=== PATIENT | female | born 1975 | race Caucasian/White ===

== ENCOUNTER → 2016-10-26 | Outpatient (CLI) | payer MEDICAID | LOC: OD 11:17 | PROVIDERS: ATTEND Internal Medicine | DX: M24.611 Ankylosis, right shoulder (principal) ==

== ENCOUNTER 2016-11-04 18:09 | Emergency (ER) | payer MEDICAID ==
--- NOTE | 2016-11-04 18:19 | ER Document Report ---
ED Medical Screen (RME) - General Chief Complaint: Abscess Stated Complaint: ABSCESS IN ARMPITS Notes: Bilateral axilla abscesses. Patient states she has had MRSA in the past. I greeted and performed a rapid initial assessment of this patient. Comprehensive ED assessment and evaluation of the patient, analysis of test results and completion of the medical decision making process will be conducted by additional ED providers. TRAVEL OUTSIDE OF THE [place] IN LAST 30 DAYS: No - Related Data Allergies/Adverse Reactions: methocarbamol [Methocarbamol] Allergy (Verified 11/15/15 02:20) soy Allergy (Verified 08/10/16 19:37) Past Medical History Pulmonary Medical History: Reports: Hx Pneumonia Denies: Hx Tuberculosis GI Medical History: Reports: Hx Gastritis, Hx Irritable Bowel, Hx Colonoscopy, Hx Endoscopy Musculoskeltal Medical History: Reports Hx Musculoskeletal Trauma Skin Medical History: Reports Hx MRSA Psychiatric Medical History: Reports: Hx Anxiety, Hx Attention Deficit Hyperactivity Disorder, Hx Depression, Hx Post Traumatic Stress Disorder Infectious Medical History: Reports: Hx MRSA Past Surgical History: Reports: Hx Dilation and Curettage - , Hx Oral Surgery - wisdom teeth. Denies: Hx Pacemaker - Immunizations Hx Diphtheria, Pertussis, Tetanus Vaccination: No Physical Exam - Vital signs Vitals: Temp Pulse Resp BP Pulse Ox 97.9 F 70 16 142/85 H 95 11/04/16 18:17 11/04/16 18:17 11/04/16 18:17 11/04/16 18:17 11/04/16 18:17 Course - Vital Signs Vital signs: Temp Pulse Resp BP Pulse Ox 97.9 F 70 16 142/85 H 95 11/04/16 18:17 11/04/16 18:17 11/04/16 18:17 11/04/16 18:17 11/04/16 18:17
[2016-11-04] MEDS ORDERED: LIDOCAINE 1% INJ-PF (10 MG/ML) 30 ML SDV INJ ONE (20:18)
[2016-11-04] MEDS ORDERED: OXYCODONE-ACETAMINOPHEN 5-325 MG TABLET PO ONE (21:37)
[2016-11-04] MEDS ORDERED: CEPHALEXIN 500 MG CAPSULE PO ONE (21:38)
[2016-11-04] MEDS ORDERED: SULFAMETHOXAZOLE/TRIMETHOPRIM 800-160 MG TABLET PO ONE (21:38)
--- NOTE | 2016-11-04 21:40 | ER Document Report ---
ED General - General Chief Complaint: Abscess Stated Complaint: ABSCESS IN ARMPITS Mode of Arrival: Ambulatory Information source: Patient Notes: 41-year-old female presents with complaints of abscess under both armpits that began hurting. Patient has had multiple previous abscesses but notes none in the armpits. Patient denies any fevers or chills nausea vomiting or diarrhea. TRAVEL OUTSIDE OF THE [place] IN LAST 30 DAYS: No - HPI Onset: Other - To 3 days Onset/Duration: Persistent, Worse Quality of pain: Achy Severity: Mild Pain Level: 1 Associated symptoms: Other Exacerbated by: Movement Relieved by: Denies Similar symptoms previously: Yes Recently seen / treated by doctor: No - Related Data Allergies/Adverse Reactions: methocarbamol [Methocarbamol] Allergy (Verified 11/15/15 02:20) soy Allergy (Verified 08/10/16 19:37) Past Medical History - Social History Smoking Status: Current Every Day Smoker Cigarette use (# per day): No Chew tobacco use (# tins/day): No Smoking Education Provided: No Family History: CAD, CVA, DM Patient has suicidal ideation: No Patient has homicidal ideation: No Pulmonary Medical History: Reports: Hx Pneumonia Denies: Hx Tuberculosis Renal/ Medical History: Denies: Hx Peritoneal Dialysis GI Medical History: Reports: Hx Gastritis, Hx Irritable Bowel, Hx Colonoscopy, Hx Endoscopy Musculoskeltal Medical History: Reports Hx Musculoskeletal Trauma Skin Medical History: Reports Hx MRSA Psychiatric Medical History: Reports: Hx Anxiety, Hx Attention Deficit Hyperactivity Disorder, Hx Depression, Hx Post Traumatic Stress Disorder Infectious Medical History: Reports: Hx MRSA Past Surgical History: Reports: Hx Dilation and Curettage - , Hx Oral Surgery - wisdom teeth. Denies: Hx Pacemaker - Immunizations Hx Diphtheria, Pertussis, Tetanus Vaccination: No Review of Systems - Review of Systems Notes: REVIEW OF SYSTEMS: CONSTITUTIONAL : Denies fever, chills, or sweats. Denies recent illness. EENT: Denies eye, ear, throat, or mouth pain or symptoms. Denies nasal or sinus congestion or discharge. Denies throat, tongue, or mouth swelling or difficulty swallowing. CARDIOVASCULAR: Denies chest pain. Denies palpitations or racing or irregular heart beat. Denies ankle edema. RESPIRATORY: Denies cough, cold, or chest congestion. Denies shortness of breath, difficulty breathing, or wheezing. GASTROINTESTINAL: Denies abdominal pain or distention. Denies nausea, vomiting , or diarrhea. Denies blood in vomitus, stools, or per rectum. Denies black, tarry stools. Denies constipation. GENITOURINARY: Denies difficulty urinating, painful urination, burning, frequency, blood in urine, or discharge. FEMALE GENITOURINARY: Denies vaginal bleeding, heavy or abnormal periods, irregular periods. Denies vaginal discharge or odor. MUSCULOSKELETAL: Denies back or neck pain or stiffness. Denies joint pain or swelling. SKIN: Admits to abscesses HEMATOLOGIC : Denies easy bruising or bleeding. LYMPHATIC: Denies swollen, enlarged glands. NEUROLOGICAL: Denies confusion or altered mental status. Denies passing out or loss of consciousness. Denies dizziness or lightheadedness. Denies headache. Denies weakness or paralysis or loss of use of either side. Denies problems with gait or speech. Denies sensory loss, numbness, or tingling. Denies seizures. PSYCHIATRIC: Denies anxiety or stress. Denies depression, suicidal ideation, or homicidal ideation. ALL OTHER SYSTEMS REVIEWED AND NEGATIVE. Dictation was performed using [employer] voice recognition software PHYSICAL EXAMINATION: GENERAL: Well-appearing, well-nourished and in no acute distress. HEAD: Atraumatic, normocephalic. EYES: Pupils equal round extraocular movements intact, conjunctiva are normal. ENT: Nares patent NECK: Normal range of motion LUNGS: No respiratory distress Musculoskeletal: Normal range of motion NEUROLOGICAL: Normal speech, normal gait. PSYCH: Normal mood, normal affect. SKIN: 2 abscesses under the right axilla, 2x2 and 2x3 cm fluctuant 1 abscess under hte left axilla, 1x1 cm not fluctuant Physical Exam - Vital signs Vitals: Temp Pulse Resp BP Pulse Ox 97.9 F 70 16 142/85 H 95 11/04/16 18:17 11/04/16 18:17 11/04/16 18:17 11/04/16 18:17 11/04/16 18:17 Course - Re-evaluation Re-evalutation: 11/04/16 22:19 Areas were anesthetized incised small amount of pus was drained from each site, patient will be given surgical follow-up as well as antibiotics and pain control for home After performing a Medical Screening Examination, I estimate there is LOW risk for OPEN FRACTURE, COMPARTMENT SYNDROME, TENDON RUPTURE, ACUTE NEUROVASCULAR INJURY, or RETAINED FOREIGN BODY, thus I consider the discharge disposition reasonable. Also, there is no evidence or peritonitis, sepsis, or toxicity. The patient and I have discussed the diagnosis and risks, and we agree with discharging home with close follow-up with the understanding that symptoms and presentations can change. We also discussed returning to the Emergency Department immediately if new or worsening symptoms occur. We have discussed the symptoms which are most concerning (e.g., changing or worsening pain, fever , numbness, weakness, cool or painful digits) that necessitate immediate return. 11/04/16 22:21 - Vital Signs Vital signs: Temp Pulse Resp BP Pulse Ox 97.9 F 70 16 142/85 H 95 11/04/16 18:17 11/04/16 18:17 11/04/16 18:17 11/04/16 18:17 11/04/16 18:17 Procedures - Incision and Drainage Left Proximal Arm Time completed: 22:00 - left axilla Type: Simple Anesthetic type: 1% Lidocaine mL's of anesthetic: 4 Blade size: 11 I&D procedure: Shurclens applied, Sterile dressing applied Incision Method: Incision made by scalpel Amount/type of drainage: small amount of pus Right Proximal Arm Time completed: 22:00 - right axilla proximal abscess Type: Complex, Multiple Anesthetic type: 1% Lidocaine mL's of anesthetic: 10 Blade size: 11 Incision Method: Incision made by scalpel Amount/type of drainage: 2 abscesses incisded, small maount of blood and pus Discharge - Discharge Clinical Impression: Axillary abscess Blister of axilla with infection Qualifiers: Encounter type: initial encounter Laterality: unspecified laterality Qualified Code(s): S40.829A - Blister (nonthermal) of unspecified upper arm, initial encounter Condition: Stable Disposition: HOME, SELF-CARE Instructions: Post Incision and Drainage Prescriptions: Cephalexin Monohydrate [Keflex 500 mg Capsule] 500 mg PO QID #40 capsule Oxycodone HCl/Acetaminophen [Percocet 5-325 mg Tablet] 1 - 2 tab PO Q4H PRN #8 tablet PRN Reason: Sulfamethoxazole/Trimethoprim [Bactrim Ds Tablet] 2 each PO BID #40 tablet Referrals: ED HERRERA MD [Primary Care Provider] - Follow up in 3-5 days
[2016-11-04 23:32] VITALS: BP 133/78
== END 2016-11-04 23:10 | disposition home or self-care (01) ==
LOC: ER 18:09
PROC: 0H9BXZZ Drainage of Right Upper Arm Skin, External Approach (ICD-10-PCS; principal; 2016-11-04)
PROC: 0H9CXZZ Drainage of Left Upper Arm Skin, External Approach (ICD-10-PCS; 2016-11-04)
DX: L02.412 Cutaneous abscess of left axilla (principal); L02.411 Cutaneous abscess of right axilla; S40.829A Blister (nonthermal) of unspecified upper arm, initial encounter; F17.200 Nicotine dependence, unspecified, uncomplicated; Z86.14 Personal history of Methicillin resistant Staphylococcus aureus infection
CPT/HCPCS: 99283; 10060; 10061; J3490 ×2

== ENCOUNTER 2018-02-09 10:55 | Emergency (ER) | payer MEDICAID ==
--- NOTE | 2018-02-09 12:05 | ER Document Report ---
ED Medical Screen (RME) - General Chief Complaint: Other Stated Complaint: ABDOMINAL PAIN Time Seen by Provider: 02/09/18 11:55 Notes: 42-year-old female patient diagnosed with left groin strain a few days ago started on Zanaflex on 02/05/2018. She reports at 7:00 this morning she felt dizzy got anxious develop suicidal ideation and hallucinations. She states she cannot stand or walk without taking medication. She stated she tried to self treat massaging her iliopsoas muscle and made the problem worse. She says she has a quadratus lumborum muscle strain, iliopsoas muscle strain, piriformis muscles strain. 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 I have greeted and performed a rapid initial assessment of this patient. A comprehensive ED assessment and evaluation of the patient, analysis of test results and completion of the medical decision making process will be conducted by additional ED providers. TRAVEL OUTSIDE OF THE [place] IN LAST 30 DAYS: No - Related Data Allergies/Adverse Reactions: methocarbamol [Methocarbamol] Allergy (Verified 02/09/18 10:57) propranolol [From Inderal [place]] Allergy (Verified 02/09/18 10:57) soy Allergy (Verified 02/09/18 10:57) Past Medical History - Social History Chew tobacco use (# tins/day): No Frequency of alcohol use: None Drug Abuse: None Pulmonary Medical History: Reports: Hx Pneumonia Denies: Hx Tuberculosis Renal/ Medical History: Denies: Hx Peritoneal Dialysis GI Medical History: Reports: Hx Gastritis, Hx Irritable Bowel, Hx Colonoscopy, Hx Endoscopy Musculoskeltal Medical History: Reports Hx Musculoskeletal Trauma Skin Medical History: Reports Hx MRSA Psychiatric Medical History: Reports: Hx Anxiety, Hx Attention Deficit Hyperactivity Disorder, Hx Depression, Hx Post Traumatic Stress Disorder Infectious Medical History: Reports: Hx MRSA Past Surgical History: Reports: Hx Dilation and Curettage - , Hx Oral Surgery - wisdom teeth. Denies: Hx Pacemaker - Immunizations Hx Diphtheria, Pertussis, Tetanus Vaccination: No Physical Exam - Vital signs Vitals: Temp Pulse Resp BP Pulse Ox 98.5 F 60 16 104/58 L 98 02/09/18 11:00 02/09/18 11:00 02/09/18 11:00 02/09/18 11:00 02/09/18 11:00 Course - Vital Signs Vital signs: Temp Pulse Resp BP Pulse Ox 98.5 F 60 16 104/58 L 98 02/09/18 11:00 02/09/18 11:00 02/09/18 11:00 02/09/18 11:00 02/09/18 11:00
--- NOTE | 2018-02-09 12:45 | ER Document Report ---
HPI - HPI Patient complains to provider of: left hip pain, abdominal pain Pain Level: 3 Context: Patient is a 42-year-old female who presents emergency department 2 complaints. Patient states for the past 2 weeks she has had a focal abdominal discomfort with intermittent bulging. She denies any nausea, vomiting, severe stabbing pain, diarrhea constipation. Patient states she does have a history of IBS but is been consistent with her baseline. She denies any known hernias, history of umbilical or inguinal hernias. She is also complaining of left hip pain. Patient states that she is in school for massage therapy and has noticed pain in her hip and sciatic area. She has been taking Zanaflex which she states helps with the discomfort but otherwise she states she does not like the side effects. Patient follows with Dr. Herrera. - REPRODUCTIVE Reproductive: DENIES: : - DERM Skin Color: Normal, Ute Past Medical History - Social History Smoking Status: Never Smoker Chew tobacco use (# tins/day): No Frequency of alcohol use: None Drug Abuse: None Family History: CAD, CVA, DM Patient has suicidal ideation: No Patient has homicidal ideation: No Pulmonary Medical History: Reports: Hx Pneumonia Denies: Hx Tuberculosis Renal/ Medical History: Denies: Hx Peritoneal Dialysis GI Medical History: Reports: Hx Gastritis, Hx Irritable Bowel, Hx Colonoscopy, Hx Endoscopy Musculoskeltal Medical History: Reports Hx Musculoskeletal Trauma Skin Medical History: Reports Hx MRSA Psychiatric Medical History: Reports: Hx Anxiety, Hx Attention Deficit Hyperactivity Disorder, Hx Depression, Hx Post Traumatic Stress Disorder Infectious Medical History: Reports: Hx MRSA Past Surgical History: Reports: Hx Dilation and Curettage - , Hx Oral Surgery - wisdom teeth. Denies: Hx Pacemaker - Immunizations Hx Diphtheria, Pertussis, Tetanus Vaccination: No Vertical Provider Document - CONSTITUTIONAL Agree With Documented VS: Yes Notes: PHYSICAL EXAM GENERAL: Alert, interacts well. HEAD: Normocephalic, atraumatic. LUNGS: Clear to auscultation bilaterally, no wheezes, rales, or rhonchi. No respiratory distress. HEART: Regular rate and rhythm. No murmurs, gallops, or rubs. ABDOMEN: Soft, nondistended, nontender. Small deficit noted within the umbilicus but no palpable hernia. No concern for an incarcerated hernia at this time. No guarding, rebound, or rigidity.. Bowel sounds present in all 4 quadrants. EXTREMITIES: Moves all 4 extremities spontaneously. Some pain reproducible with range of motion of the left hip. No leg shortening, deformity no edema, radial and dorsalis pedis pulses 2/4 bilaterally. No cyanosis. NEUROLOGICAL: Alert and oriented x4. Normal speech. PSYCH: Normal affect, normal mood. SKIN: Warm, dry, normal turgor. No rashes or lesions noted. - INFECTION CONTROL TRAVEL OUTSIDE OF THE [place] IN LAST 30 DAYS: No Course - Re-evaluation Re-evalutation: 02/09/18 13:33 Patient is a 42-year-old female hemodynamic stable, no acute distress and afebrile. History and exam consistent with possible underlying hernia. No evidence of incarceration at this time. Regarding her hip. No evidence of a septic joint, gout flare, dislocation, or fracture on exam and imaging. Vitals wnl. At this time, I do not see an indication for labs or further imaging. Will discharge with conservative measures, return precautions, and follow-up recommendations. - Vital Signs Vital signs: Temp Pulse Resp BP Pulse Ox 98.5 F 60 16 104/58 L 98 02/09/18 11:00 02/09/18 11:00 02/09/18 11:00 02/09/18 11:00 02/09/18 11:00 - Diagnostic Test Radiology reviewed: Image reviewed, Reports reviewed Discharge - Discharge Clinical Impression: Abdominal pain, Hip pain Condition: Good Disposition: HOME, SELF-CARE Additional Instructions: You do not have evidence of a fracture on today's xrays. Your pain is likely to do soft tissue swelling and inflammation. This can last up to 6 weeks before completely resolving. You should continue to apply ice to the area regularly, keep the affected area elevated, and take ibuprofen 600mg every 6 hours as needed for pain. Please return if you have worsening pain, weakness, numbness, notice increasing redness or swelling to the area, develop a fever, or have any other symptoms that are concerning to you. Your abdominal pain today is consistent with a possible underlying small hernia. Please return with any bump that is present and not able to be reduced/ pushed in with significant pain, nausea vomiting Prescriptions: Cyclobenzaprine HCl [Flexeril 10 mg Tablet] 10 mg PO TIDP PRN #15 tab PRN Reason: Ibuprofen [Motrin 800 mg Tablet] 800 mg PO Q8H PRN #30 tab PRN Reason: Forms: Special Work Note Referrals: ED HERRERA MD [Primary Care Provider] - Follow up in 1 week
--- NOTE | 2018-02-09 13:19 | RADIOLOGY REPORT (SQ) ---
EXAM DESCRIPTION: HIP LEFT AP/LATERAL COMPLETED DATE/TIME: 02/09/2018 1:07 pm REASON FOR STUDY: pain COMPARISON: None. NUMBER OF VIEWS: Two views. TECHNIQUE: AP pelvis and additional frog-leg view of the left hip. LIMITATIONS: None. FINDINGS: MINERALIZATION: Normal. LEFT HIP: No fracture or dislocation. No worrisome bone lesions. RIGHT HIP: No fracture or dislocation. No worrisome bone lesions. PUBIS AND ISCHIUM: No fracture. PELVIS: No fracture. SACRUM: No fracture or dislocation. No worrisome bone lesions. LOWER LUMBAR SPINE: No fracture or dislocation. No worrisome bone lesions. No significant disc disea se. SOFT TISSUES: No findings. OTHER: No other significant finding. IMPRESSION: NEGATIVE STUDY OF THE LEFT HIP AND PELVIS. NO RADIOGRAPHIC EVIDENCE OF ACUTE INJURY. TECHNICAL DOCUMENTATION: JOB ID: [id number] [employer]- All Rights Reserved Reading location - IP/workstation name: [email or web address]
[2018-02-09 14:14] VITALS: BP 119/67
== END 2018-02-09 14:16 | disposition home or self-care (01) ==
LOC: ER 10:55
DX: M25.552 Pain in left hip (principal); R10.9 Unspecified abdominal pain; Z86.14 Personal history of Methicillin resistant Staphylococcus aureus infection
CPT/HCPCS: 99284

== ENCOUNTER 2019-01-19 09:53 | Emergency (ER) | payer MEDICAID ==
[2019-01-19] MEDS ORDERED: MAG HYDROX/AL HYDROX/SIMETH SUSP 30 ML UDCUP PO ONE (10:30)
[2019-01-19 10:48] VITALS: BP 123/81
--- NOTE | 2019-01-19 10:51 | ER Document Report ---
ED General - General Chief Complaint: Accidental Overdose Stated Complaint: ACCIDENTAL OVERDOSE Time Seen by Provider: 01/19/19 10:21 Primary Care Provider: ED HERRERA MD [Primary Care Provider] - Follow up as needed Mode of Arrival: Ambulatory Information source: Patient TRAVEL OUTSIDE OF THE [place] IN LAST 30 DAYS: No - HPI Patient complains to provider of: Accidental drug ingestion Onset: Yesterday Notes: Patient is here with complaints of accidentally taking her medications at home inappropriately. Patient is on Vyvanse. She typically takes it in the morning. Last evening around 9 PM, she accidentally took 2 of her Vyvanse thinking that they were her fluoxetine. When she realized what she had done, she knew she was going to have difficulty sleeping and she took approximately 5-6 5 mg of Valium is at the same time. She did not sleep well through the night. She came to the emergency department this morning because she was concerned that she may have had a problem taking those 2 medications together. The only complaint she has at this time is feeling slightly nauseous, but she denies any vomiting or diarrhea. She denies any homicidal or suicidal ideation. She does complain of anxiety which is chronic. She denies any changes in this at this time. No chest pain or shortness of breath. No blurred or loss vision. No numbness, tingling, weakness. She denies any other complaints at this time. - Related Data Allergies/Adverse Reactions: methocarbamol [Methocarbamol] Allergy (Verified 01/19/19 10:03) propranolol [From Inderal [place]] Allergy (Verified 01/19/19 10:03) soy Allergy (Verified 01/19/19 10:03) Past Medical History - Social History Smoking Status: Never Smoker Frequency of alcohol use: None Drug Abuse: None Family History: CAD, CVA, DM Patient has suicidal ideation: No Patient has homicidal ideation: No Pulmonary Medical History: Reports: Hx Pneumonia Denies: Hx Tuberculosis Renal/ Medical History: Denies: Hx Peritoneal Dialysis GI Medical History: Reports: Hx Gastritis, Hx Irritable Bowel, Hx Colonoscopy, Hx Endoscopy Musculoskeletal Medical History: Reports Hx Musculoskeletal Trauma Skin Medical History: Reports Hx MRSA Psychiatric Medical History: Reports: Hx Anxiety, Hx Attention Deficit Hyperactivity Disorder, Hx Depression, Hx Post Traumatic Stress Disorder Infectious Medical History: Reports: Hx MRSA Past Surgical History: Reports: Hx Dilation and Curettage - , Hx Oral Surgery - wisdom teeth. Denies: Hx Pacemaker - Immunizations Hx Diphtheria, Pertussis, Tetanus Vaccination: No Review of Systems - Review of Systems -: Yes All other systems reviewed and negative Physical Exam - Vital signs Vitals: Temp Pulse Resp BP Pulse Ox 97.9 F 87 16 127/84 H 98 01/19/19 10:00 01/19/19 10:00 01/19/19 10:00 01/19/19 10:00 01/19/19 10:00 - Notes Notes: GENERAL: alert, cooperative, nontoxic, no distress. HEAD: normocephalic, atraumatic EYES: conjunctiva pink without discharge, no external redness or swelling. EARS: no external swelling, no external redness NOSE: atraumatic, no external swelling MOUTH/THROAT: mucous membranes moist and pink, posterior pharynx without erythema, swelling, exudate. No trismus or drooling. NECK: soft, supple, full range of motion, no meningismus. CHEST: no distress, lungs clear and equal throughout. No wheezing, rales, rhonchi. CARDIAC: regular rate and rhythm, no murmur, normal capillary refill, normal pulses. No peripheral edema noted. ABDOMEN: Soft, nontender. BACK: full range of motion, no CVA tenderness. EXTREMITIES: full range of motion of all extremities. No redness, no swelling. NEURO: alert and oriented x 3, no focal deficits, full range of motion of all extremities. PYSCH: appropriate mood, affect. Patient is cooperative. SKIN: pink, warm, dry, no rash. Course - Re-evaluation Re-evalutation: 01/19/19 10:51 Patient is nontoxic-appearing with stable vitals. The patient is here with complaints of actually taking medications last evening. She asked only took 2 of her Vyvanse last night around 9 PM and then took approximately 5-6 and 5 mg Valium in order to counteract the Vyvanse. This was over 12 hours ago. Her only complaint right now is that she feels slightly nauseous. This was not an attempt to harm herself, she denies any suicidal or homicidal ideation. This point the patient looks well. Did not believe any further monitoring is required as the patient took these medications over 12 hours ago and is doing perfectly fine at this time. Her vitals are stable. She is not overly sedated. At this point the patient will be discharged home follow-up with her primary care doctor at the next available appointment. Follow-up sooner if she has any worsening symptoms, homicidal or suicidal ideation, persistent vomiting, severe pain, or any further concerns. The patient's emergency department workup and current diagnosis were explained to the patient and or family. Follow-up instructions were provided. Medications if prescribed were discussed. Instructions for when to return to the emergency department including specific worrisome symptoms were discussed with the patient and/or family. - Vital Signs Vital signs: Temp Pulse Resp BP Pulse Ox 97.9 F 87 16 127/84 H 98 01/19/19 10:00 01/19/19 10:00 01/19/19 10:00 01/19/19 10:00 01/19/19 10:00 Discharge - Discharge Clinical Impression: Accidental drug ingestion Qualifiers: Encounter type: initial encounter Qualified Code(s): T50.901A - Poisoning by unspecified drugs, medicaments and biological substances, accidental (unintentional), initial encounter Condition: Stable Disposition: HOME, SELF-CARE Instructions: Anxiety (OM) Additional Instructions: Be careful when taking medications that you are taking the correct medications at the correct time. Follow-up with your doctor to discuss treating her anxiety in a more efficient manner. Follow-up sooner for any worsening symptoms, high fever, persistent vomiting, homicidal or suicidal ideation, or for any further concerns. Referrals: ED HERRERA MD [Primary Care Provider] - Follow up as needed
== END 2019-01-19 10:55 | disposition home or self-care (01) ==
LOC: ER 09:53
DX: T43.621A Poisoning by amphetamines, accidental (unintentional), initial encounter (principal); R11.0 Nausea; Z79.899 Other long term (current) drug therapy
CPT/HCPCS: 99283; J3490

== ENCOUNTER 2019-02-23 22:38 | Emergency (ER) | payer MEDICAID ==
--- NOTE | 2019-02-24 01:14 | ER Document Report ---
ED Medical Screen (RME) - General Chief Complaint: Abscess Stated Complaint: ABSCESS Time Seen by Provider: 02/24/19 01:12 Primary Care Provider: ED HERRERA MD [Primary Care Provider] - Follow up as needed Mode of Arrival: Ambulatory Information source: Patient Notes: 43-year-old female presented to ED for pain swelling and redness to the left chin. 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 She states she plucked a hair from her chin a couple days ago and it is slowly become more painful and swelling. She states this morning it has greatly increased in size all day. She states she is been using hot compresses to this. She states she has a history of frequent MRSA. She has a history of PTSD autism ADHD major depression and generalized anxiety disorder. She states she has Valium at home for her mental health issues and she took milligrams at noon due to the discomfort. She states she is also been taken Tylenol throughout the day. I have greeted and performed a rapid initial assessment of this patient. A comprehensive ED assessment and evaluation of the patient, analysis of test results and completion of medical decision making process will be conducted by an additional ED providers. Dictation of this chart was performed using voice recognition software; therefore, there may be some unintended grammatical errors. TRAVEL OUTSIDE OF THE [place] IN LAST 30 DAYS: No - Related Data Allergies/Adverse Reactions: methocarbamol [Methocarbamol] Allergy (Verified 01/19/19 10:03) propranolol [From Inderal [place]] Allergy (Verified 01/19/19 10:03) soy Allergy (Verified 01/19/19 10:03) Past Medical History Pulmonary Medical History: Reports: Hx Pneumonia Denies: Hx Tuberculosis Renal/ Medical History: Denies: Hx Peritoneal Dialysis GI Medical History: Reports: Hx Gastritis, Hx Irritable Bowel, Hx Colonoscopy, Hx Endoscopy Musculoskeltal Medical History: Reports Hx Musculoskeletal Trauma Skin Medical History: Reports Hx MRSA Psychiatric Medical History: Reports: Hx Anxiety, Hx Attention Deficit Hyperactivity Disorder, Hx Depression, Hx Post Traumatic Stress Disorder Infectious Medical History: Reports: Hx MRSA Past Surgical History: Reports: Hx Dilation and Curettage - , Hx Oral Surgery - wisdom teeth. Denies: Hx Pacemaker - Immunizations Hx Diphtheria, Pertussis, Tetanus Vaccination: No Physical Exam - Vital signs Vitals: Temp Pulse Resp BP Pulse Ox 98.3 F 94 16 122/84 98 02/23/19 23:57 02/23/19 23:57 02/23/19 23:57 02/23/19 23:57 02/23/19 23:57 Course - Vital Signs Vital signs: Temp Pulse Resp BP Pulse Ox 98.3 F 94 16 122/84 98 02/23/19 23:57 02/23/19 23:57 02/23/19 23:57 02/23/19 23:57 02/23/19 23:57 Doctor's Discharge - Discharge Referrals: ED HERRERA MD [Primary Care Provider] - Follow up as needed
[2019-02-24] MEDS ORDERED: LIDOCAINE 1% INJ-PF (10 MG/ML) 30 ML SDV INJ ONE (05:11)
[2019-02-24] MEDS ORDERED: PROMETHAZINE HCL 25 MG TABLET PO ONE (05:11)
[2019-02-24] MEDS ORDERED: OXYCODONE-ACETAMINOPHEN 5-325 MG TABLET PO ONE (05:11)
[2019-02-24] MEDS ORDERED: CEFTRIAXONE INJ 1000 MG VIAL IM ONE (05:11)
[2019-02-24] MEDS ORDERED: SULFAMETHOXAZOLE/TRIMETHOPRIM 800-160 MG TABLET PO ONE (05:11)
[2019-02-24 05:39] VITALS: BP 131/84
--- NOTE | 2019-02-24 05:44 | ER Document Report ---
ED Skin Rash/Insect Bite/Abscs - General Chief Complaint: Abscess Stated Complaint: ABSCESS Time Seen by Provider: 02/24/19 01:12 Primary Care Provider: ED HERRERA MD [Primary Care Provider] - Follow up as needed Mode of Arrival: Ambulatory Notes: Patient is a 43-year-old female that comes to the emergency department for chief complaint of pain, redness, swelling to her chin/jaw, mainly on the left side. Patient states she had a hair that she picked out, she states yesterday morning she started noticing some tenderness and redness, she states this worsened significantly. She reports a history of MRSA infection previously. She does not have diabetes. She denies any complaints otherwise including fever/chills, nausea/vomiting. TRAVEL OUTSIDE OF THE [place] IN LAST 30 DAYS: No - Related Data Allergies/Adverse Reactions: methocarbamol [Methocarbamol] Allergy (Verified 01/19/19 10:03) propranolol [From Inderal [place]] Allergy (Verified 01/19/19 10:03) soy Allergy (Verified 01/19/19 10:03) Past Medical History - General Information source: Patient - Social History Smoking Status: Never Smoker Drug Abuse: None Lives with: Family Family History: CAD, CVA, DM Patient has suicidal ideation: No Patient has homicidal ideation: No Pulmonary Medical History: Reports: Hx Pneumonia Denies: Hx Tuberculosis Renal/ Medical History: Denies: Hx Peritoneal Dialysis GI Medical History: Reports: Hx Gastritis, Hx Irritable Bowel, Hx Colonoscopy, Hx Endoscopy Musculoskeletal Medical History: Reports Hx Musculoskeletal Trauma Skin Medical History: Reports Hx MRSA Psychiatric Medical History: Reports: Hx Anxiety, Hx Attention Deficit Hyperactivity Disorder, Hx Depression, Hx Post Traumatic Stress Disorder Infectious Medical History: Reports: Hx MRSA Past Surgical History: Reports: Hx Dilation and Curettage - , Hx Oral Surgery - wisdom teeth. Denies: Hx Pacemaker - Immunizations Hx Diphtheria, Pertussis, Tetanus Vaccination: No Review of Systems - Review of Systems Constitutional: No symptoms reported EENT: No symptoms reported Cardiovascular: No symptoms reported Respiratory: No symptoms reported Gastrointestinal: No symptoms reported Genitourinary: No symptoms reported Female Genitourinary: No symptoms reported Musculoskeletal: No symptoms reported Skin: See HPI Hematologic/Lymphatic: No symptoms reported Neurological/Psychological: No symptoms reported Physical Exam - Vital signs Vitals: Temp Pulse Resp BP Pulse Ox 98.3 F 94 16 122/84 98 02/23/19 23:57 02/23/19 23:57 02/23/19 23:57 02/23/19 23:57 02/23/19 23:57 - Notes Notes: GENERAL: Alert, interacts well. No acute distress. HEAD: Normocephalic, atraumatic. EYES: Pupils equal, round, and reactive to light. Extraocular movements intact. ENT: Oral mucosa moist, tongue midline. Oropharynx unremarkable. Airway patent. Nares patent, no nasal septal hematoma, TM's intact. NECK: Full range of motion. Supple. Trachea midline. LUNGS: Clear to auscultation bilaterally, no wheezes, rales, or rhonchi. No respiratory distress. HEART: Regular rate and rhythm. No murmur ABDOMEN: Soft, non-tender. Non-distended. Bowel sounds present in all 4 quadrants. GENITOURINARY: Deferred EXTREMITIES: Moves all 4 extremities spontaneously. No edema, normal radial and dorsalis pedis pulses bilaterally. No cyanosis. BACK: no cervical, thoracic, lumbar midline tenderness. No saddle anesthesia, normal distal neurovascular exam. NEUROLOGICAL: Alert and oriented x3. Normal speech. . PSYCH: Normal affect, normal mood. SKIN: Warm, dry, normal turgor. Left chin area with erythema, mild soft tissue swelling, however no induration or fluctuance is noted. There is a tiny area of picked skin with a scab over it. Course - Re-evaluation Re-evalutation: Examination is most consistent with a cellulitis. Patient is afebrile, not diabetic. A quick bedside ultrasound performed and does not show any pocket of fluid suggesting abscess at this time. As result patient will be treated with antibiotics, recommended quick follow-up and strict return precautions if she worsens in any way. Patient declined the area being traced with a medical pen but reported she did take pictures of herself to compare. Stable at time of discharge. - Vital Signs Vital signs: Temp Pulse Resp BP Pulse Ox 97.8 F 67 18 131/84 H 100 02/24/19 05:38 02/24/19 05:38 02/24/19 05:38 02/24/19 05:38 02/24/19 05:38 Discharge - Discharge Clinical Impression: Cellulitis Qualifiers: Site of cellulitis: face Qualified Code(s): L03.211 - Cellulitis of face Condition: Stable Disposition: HOME, SELF-CARE Additional Instructions: There is no noted drainable abscess at this time. Your exam is consistent with facial cellulitis. Take the antibiotics as prescribed, take the pain medication if needed, especially to help you rest. Follow-up very closely with your primary care provider within the next 48 hours. Return if you worsen in any way including spreading redness, developing fever, or any other concerning or worsening symptoms. Prescriptions: Cephalexin Monohydrate [Keflex 500 mg Capsule] 500 mg PO QID #28 capsule Hydrocodone/Acetaminophen [[place] 5-325 mg Tablet] 1 - 2 tab PO ASDIR #12 tablet Sulfamethoxazole/Trimethoprim [Bactrim Ds Tablet] 1 each PO BID #14 tablet Referrals: ED HERRERA MD [Primary Care Provider] - Follow up as needed
== END 2019-02-24 05:48 | disposition home or self-care (01) ==
LOC: ER 22:38
DX: L03.211 Cellulitis of face (principal); R22.0 Localized swelling, mass and lump, head
CPT/HCPCS: 99282; 96372; J3490 ×3; J0696

== ENCOUNTER 2019-02-25 10:06 | Inpatient (IN) | payer MEDICAID ==
[2019-02-25] MEDS ORDERED: NORMAL SALINE 1000 ML 1,000 ML IV ONE (11:00)
[2019-02-25] MEDS ORDERED: CLINDAMYCIN 600 MG/D5W RTU 600 MG/50 ML RTUPB IV ONE (11:02)
[2019-02-25] MEDS ORDERED: KETOROLAC TROMETHAMINE INJ/PF 30 MG/1 ML SDV IV ONE (11:02)
--- NOTE | 2019-02-25 11:05 | ER Document Report ---
ED Medical Screen (RME) - General Chief Complaint: Facial Swelling Stated Complaint: FEVER/NECK REDNESS AND SWOLLEN Time Seen by Provider: 02/25/19 10:54 Primary Care Provider: ED HERRERA MD [Primary Care Provider] - Follow up as needed Mode of Arrival: Ambulatory Information source: Patient TRAVEL OUTSIDE OF THE [place] IN LAST 30 DAYS: No - HPI Patient complains to provider of: LEFT CHIN ABSCESS Notes: 02/25/19 11:03 Patient here with complaints of worsening left chin abscess. The patient states started about 4 days ago. She was seen here 2 days ago and was noted to have no drainable abscess at that time. She was given a dose of IV antibiotics and was given Keflex and Bactrim to take home. She states when she woke up this morning the swelling was significantly worse, the redness was worse and she had a temperature of 99.9 she states that it does hurt somewhat to swallow as well. Exam Nontoxic, no distress. Lungs clear and equal throughout. Tachycardia. Abscess with swelling, induration and tenderness to the left aspect of the chin with cellulitis to the chin and down the left aspect of the neck. Swelling noted to the left aspect of the lower lip. Airway patent. Plan Due to the fact that the patient has an infection and is tachycardic I have gone ahead and initiated the sepsis protocol. She is afebrile currently. Also ordered a CT of the soft tissues and neck to evaluate for deep space infection. Clindamycin has been ordered IV. An initial examination was made on the patient as part of the triage process, and it was determined a more comprehensive evaluation was necessary. Initial labs were ordered and patient was transferred to another provider in the ED who assumed care and finished evaluation and plan. - Related Data Allergies/Adverse Reactions: methocarbamol [Methocarbamol] Allergy (Verified 02/25/19 10:09) propranolol [From Inderal [place]] Allergy (Verified 02/25/19 10:09) soy Allergy (Verified 02/25/19 10:09) Past Medical History Pulmonary Medical History: Reports: Hx Pneumonia Denies: Hx Tuberculosis Renal/ Medical History: Denies: Hx Peritoneal Dialysis GI Medical History: Reports: Hx Gastritis, Hx Irritable Bowel, Hx Colonoscopy, Hx Endoscopy Musculoskeltal Medical History: Reports Hx Musculoskeletal Trauma Skin Medical History: Reports Hx MRSA Psychiatric Medical History: Reports: Hx Anxiety, Hx Attention Deficit Hyperactivity Disorder, Hx Depression, Hx Post Traumatic Stress Disorder Infectious Medical History: Reports: Hx MRSA Past Surgical History: Reports: Hx Dilation and Curettage - , Hx Oral Surgery - wisdom teeth. Denies: Hx Pacemaker - Immunizations Hx Diphtheria, Pertussis, Tetanus Vaccination: No Physical Exam - Vital signs Vitals: Temp Pulse Resp BP Pulse Ox 99.1 F 134 H 18 139/86 H 94 02/25/19 10:16 02/25/19 10:16 02/25/19 10:16 02/25/19 10:16 02/25/19 10:16 Course - Vital Signs Vital signs: Temp Pulse Resp BP Pulse Ox 99.1 F 134 H 18 139/86 H 94 02/25/19 10:16 02/25/19 10:16 02/25/19 10:16 02/25/19 10:16 02/25/19 10:16 Doctor's Discharge - Discharge Referrals: ED HERRERA MD [Primary Care Provider] - Follow up as needed
[2019-02-25 12:06] LABS: VENOUS BLOOD BASE EXCESS 0.1 mmol/L; VENOUS BLOOD HCO3 26.4 mmol/L (20-32); VENOUS BLOOD PCO2 49.1 mmHg (35-63); VENOUS BLOOD PH 7.35 (7.30-7.42)
[2019-02-25 12:07] LABS: ABSOLUTE BASOPHILS # (AUTO) 0.1 10^3/uL (0.0-0.2); ABSOLUTE EOSINOPHILS # (AUTO) 0.1 10^3/uL (0.0-0.6); ABSOLUTE LYMPHOCYTES (AUTO) 2.3 10^3/uL (0.5-4.7); ABSOLUTE MONOCYTES (AUTO) 1.2 10^3/uL (0.1-1.4); ABSOLUTE NEUT (AUTO) 9.7 10^3/uL (1.7-8.2); BASOPHILS % (AUTO) 0.4 % (0-2); EOSINOPHILS % (AUTO) 0.5 % (0-6); HEMATOCRIT 41.6 % (36.0-47.0); HEMOGLOBIN 14.3 g/dL (12.0-15.5); LYMPHOCYTES % (AUTO) 17.6 % (13-45); MEAN CORPUSCULAR HEMOGLOBIN 31.6 pg (27.0-33.4); MEAN CORPUSCULAR HGB CONC 34.5 g/dL (32.0-36.0); MEAN CORPUSCULAR VOLUME 92 fl (80-97); MONOCYTES % (AUTO) 8.7 % (3-13); PLATELET COUNT 301 10^3/uL (150-450); RED BLOOD COUNT 4.53 10^6/uL (3.72-5.28); RED CELL DISTRIBUTION WIDTH 12.4 % (11.5-14.0); SEGMENTED NEUTROPHILS % (AUTO) 72.8 % (42-78); TOTAL CELLS COUNTED % (AUTO) 100 %; WHITE BLOOD COUNT 13.4 10^3/uL (4.0-10.5)
[2019-02-25 12:15] LABS: APPEARANCE,URINE CLEAR; BILIRUBIN,URINE NEGATIVE (NEGATIVE); COLOR,URINE YELLOW; GLUCOSE, URINE NEGATIVE (NEGATIVE); KETONES,URINE NEGATIVE (NEGATIVE); NITRITE,URINE NEGATIVE (NEGATIVE); PROTEIN,URINE NEGATIVE (NEGATIVE); URINE SPECIFIC GRAVITY 1.013
[2019-02-25 12:16] LABS: ADD MANUAL MICROSCOPIC YES; INTERNATIONAL RATION (INR) 1.04; LEUKOCYTE ESTERASE,URINE TRACE (NEGATIVE); PROTHROMBIN TIME 14.1 SEC (11.4-15.4)
[2019-02-25 12:19] LABS: BACTERIA,URINE 2+ /HPF
[2019-02-25 12:31] LABS: ALANINE AMINOTRANSFERASE 20 U/L (9-52); ALBUMIN 4.3 g/dL (3.5-5.0); ALKALINE PHOSPHATASE 90 U/L (38-126); ANION GAP 14 (5-19); ASPARTATE AMINO TRANSFERASE 19 U/L (14-36); BILIRUBIN,DIRECT 0.3 mg/dL (0.0-0.4); BILIRUBIN,TOTAL 0.7 mg/dL (0.2-1.3); BLOOD UREA NITROGEN 10 mg/dL (7-20); CALCIUM 9.9 mg/dL (8.4-10.2); CARBON DIOXIDE 28 mmol/L (22-30); CHLORIDE 99 mmol/L (98-107); GLUCOSE 101 mg/dL (75-110); POTASSIUM 4.3 mmol/L (3.6-5.0); SODIUM 141.2 mmol/L (137-145); TOTAL PROTEIN 7.6 g/dL (6.3-8.2)
--- NOTE | 2019-02-25 12:57 | RADIOLOGY REPORT (SQ) ---
EXAM DESCRIPTION: CT SOFT TISSUE NECK WITH COMPLETED DATE/TIME: 02/25/2019 12:35 pm REASON FOR STUDY: LEFT CHIN ABSCESS COMPARISON: None. TECHNIQUE: Post IV contrasted scanning from skull base through lung apices with review of bone, soft tissue and lung windows. Reconstructed coronal and sagittal MPR images reviewed. All images stored on PACS. All CT scanners at this facility use dose modulation, iterative reconstruction, and/or weight based d osing when appropriate to reduce radiation dose to as low as reasonably achievable (ALARA). [facility]: Dose Right [facility]: CareDose [facility]: Dose Right [facility]: Teradose 4D [facility]: Echobit CONTRAST TYPE AND DOSE: contrast/concentration: Isovue 350.00 mg/ml; Total Contrast Delivered: 75.0 ml; Total Saline Delivered: 54.0 ml RENAL FUNCTION: None required. The patient is less than 50 years old. RADIATION DOSE: CT Rad equipment meets quality standard of care and radiation dose reduction techniq ues were employed. CTDIvol: 14.8 mGy. DLP: 435 mGy-cm. . LIMITATIONS: None. FINDINGS: SKULL BASE: Intact. MAJOR SALIVARY GLANDS: No solid or cystic masses. No inflammatory changes. LYMPHADENOPATHY: There are scattered small cervical nodes most likely reactive. MUCOSAL MASSES OR ASYMMETRY: No mucosal masses or asymmetry. LARYNX/CORDS: No abnormal findings. VASCULAR STRUCTURES: The major vessels are patent. LUNG APICES: Clear. BONES: Intact. THYROID: Normal size. No masses. PARANASAL SINUSES: Clear. OTHER: There is asymmetric soft tissue along the left aspect of the mandible. There is surrounding s ubcutaneous inflammation. This most likely represents infectious or inflammatory process. Hounsfiel d units measure over 68. There is no drainable abscess at this time. Soft tissue neoplasm cannot be excluded but with the surrounding inflammation is thought to be less likely. IMPRESSION: Subcutaneous inflammation with asymmetric soft tissue along the left aspect of the ayush ble. Hounsfield units measure 68. Overall size is 3.9 cm. This may represent developing abscess. There is no drainable collection at this time. Soft tissue neoplasm is thought to be less likely but not excluded. TECHNICAL DOCUMENTATION: JOB ID: [id number] Quality ID # [id number]: Final reports with documentation of one or more dose reduction techniques (e.g., Au tomated exposure control, adjustment of the mA and/or kV according to patient size, use of iterative reconstruction technique) 2010 [email or web address]- All Rights Reserved Reading location - IP/workstation name: [email or web address]
--- NOTE | 2019-02-25 14:43 | ER Document Report ---
ED General - General Chief Complaint: Facial Swelling Stated Complaint: FEVER/NECK REDNESS AND SWOLLEN Time Seen by Provider: 02/25/19 10:54 Primary Care Provider: ED HERRERA MD [Primary Care Provider] - Follow up as needed Mode of Arrival: Ambulatory TRAVEL OUTSIDE OF THE [place] IN LAST 30 DAYS: No - HPI Notes: Patient is a 43-year-old female that presents to the emergency department for chief complaint of facial swelling. Patient states on 02/23/2019 she started to have some swelling on the left lower side of her chin. She was seen the following day and started on Bactrim and Keflex. She has been taking her antibiotics as prescribed and states the swelling has been getting worse. Last night she did report some green purulent drainage from one area on the inferior aspect of her chin. She denies any fevers or chills. She denies any sensation of lingual edema or swelling underneath of her tongue. She denies diabetes. She states she noticed some redness on her neck today which is why she came back to the emergency room. Past Medical History: PTSD, autism, depression, anxiety, ADHD Past Surgical History: Negative Social History: Denies drugs alcohol and tobacco Family History: Reviewed and noncontributory for presenting illness Allergies: Reviewed, see documented allergy list. REVIEW OF SYSTEMS: CONSTITUTIONAL : No fever No chills No diaphoresis No recent illness EENT: No vision changes No congestion No sore throat Facial swelling CARDIOVASCULAR: No chest pain No palpitations RESPIRATORY: No shortness of breath No cough No difficulty breathing GASTROINTESTINAL: No abdominal pain No nausea No vomiting No diarrhea GENITOURINARY: No dysuria No hematuria No difficulty urinating MUSCULOSKELETAL: No back pain No leg pain No arm pain SKIN: rashes Facial redness LYMPHATIC: No swollen, enlarged glands. NEUROLOGICAL: No lightheadedness No headache No weakness No paresthesias PSYCHIATRIC: No anxiety No depression PHYSICAL EXAMINATION: Vital signs reviewed, nursing noted reviewed. GENERAL: Well-appearing, well-nourished and in no acute distress. HEAD: Atraumatic, normocephalic. EYES: Eyes appear normal, extraocular movements intact, sclera anicteric, conju nctiva are normal. ENT: Swelling over patient's chin and left mandibular region with erythema that extends down into the upper neck, no sublingual edema, normal oropharynx, no dental abscess, nares patent, oropharynx clear without exudates. Moist mucous membranes. NECK: No crepitus, left-sided erythema, normal range of motion, supple without lymphadenopathy LUNGS: Breath sounds clear to auscultation bilaterally and equal. No wheezes rales or rhonchi. HEART: Regular rate and rhythm without murmurs ABDOMEN: Soft, nontender, normoactive bowel sounds. No rebound, guarding, or rigidity. No masses appreciated. EXTREMITIES: Nontender, good range of motion, no pitting or edema. NEUROLOGICAL: No focal neurological deficits. Moves all extremities spontaneously Motor and sensory grossly intact on exam. PSYCH: Normal mood, normal affect. SKIN: Warm, Dry, normal turgor, erythema, induration and edema to chin, left mandible and left anterior neck with excoriated area over chin, no active drainage. - Related Data Allergies/Adverse Reactions: methocarbamol [Methocarbamol] Allergy (Verified 02/25/19 10:09) propranolol [From Inderal [place]] Allergy (Verified 02/25/19 10:09) soy Allergy (Verified 02/25/19 10:09) Past Medical History - General Information source: Patient - Social History Smoking Status: Never Smoker Chew tobacco use (# tins/day): No Frequency of alcohol use: Rare Drug Abuse: None Family History: CAD, CVA, DM Patient has suicidal ideation: No Patient has homicidal ideation: No Pulmonary Medical History: Reports: Hx Pneumonia Denies: Hx Tuberculosis Renal/ Medical History: Denies: Hx Peritoneal Dialysis GI Medical History: Reports: Hx Gastritis, Hx Irritable Bowel, Hx Colonoscopy, Hx Endoscopy Musculoskeletal Medical History: Reports Hx Musculoskeletal Trauma Skin Medical History: Reports Hx MRSA Psychiatric Medical History: Reports: Hx Anxiety, Hx Attention Deficit Hyperactivity Disorder, Hx Depression, Hx Post Traumatic Stress Disorder Infectious Medical History: Reports: Hx MRSA Past Surgical History: Reports: Hx Dilation and Curettage - , Hx Oral Surgery - wisdom teeth. Denies: Hx Pacemaker - Immunizations Hx Diphtheria, Pertussis, Tetanus Vaccination: No Physical Exam - Vital signs Vitals: Temp Pulse Resp BP Pulse Ox 99.1 F 134 H 18 139/86 H 94 02/25/19 10:16 02/25/19 10:16 02/25/19 10:16 02/25/19 10:16 02/25/19 10:16 Course - Re-evaluation Re-evalutation: 02/25/19 14:45 Vitals reviewed. Nursing notes reviewed. Patient was tachycardic at presentation which is improving with IV fluids. She is not febrile. She does have a leukocytosis and facial cellulitis that is failing outpatient management. There is a small area on the CT scan which looks like a early developing abscess with no discernible fluid collection requiring incision and drainage. Patient has had spontaneous drainage at home. She is not currently requiring any surgery. She does not have any sublingual edema to suggest Efra's angina. Patient was given a dose of clindamycin IV. She will be admitted to the hospital for further antibiotics. Case discussed with Dr. Graham who accepts admission. Laboratory 02/25/19 02/25/19 02/25/19 11:36 11:36 11:36 WBC 13.4 H RBC 4.53 Hgb 14.3 Hct 41.6 MCV 92 MCH 31.6 MCHC 34.5 RDW 12.4 Plt Count 301 Seg Neutrophils % 72.8 Lymphocytes % 17.6 Monocytes % 8.7 Eosinophils % 0.5 Basophils % 0.4 Absolute Neutrophils 9.7 H Absolute Lymphocytes 2.3 Absolute Monocytes 1.2 Absolute Eosinophils 0.1 Absolute Basophils 0.1 PT 14.1 INR 1.04 VBG pH VBG pCO2 VBG HCO3 VBG Base Excess Sodium 141.2 Potassium 4.3 Chloride 99 Carbon Dioxide 28 Anion Gap 14 BUN 10 Creatinine 0.88 Est GFR ( Amer) > 60 Est GFR (Non-Af Amer) > 60 Glucose 101 Lactic Acid Calcium 9.9 Total Bilirubin 0.7 Direct Bilirubin 0.3 Neonat Total Bilirubin Not Reportable Neonat Direct Bilirubin Not Reportable Neonat Indirect Bili Not Reportable AST 19 ALT 20 Alkaline Phosphatase 90 Total Protein 7.6 Albumin 4.3 Serum HCG, Qual Urine Color Urine Appearance Urine pH Ur Specific [employer] Urine Protein Urine Glucose (UA) Urine Ketones Urine Blood Urine Nitrite Urine Bilirubin Urine Urobilinogen Ur Leukocyte Esterase Urine RBC Urine WBC Ur Squamous Epith Cells Urine Bacteria Urine Mucus Urine Ascorbic Acid 02/25/19 02/25/19 02/25/19 11:36 11:36 11:36 WBC RBC Hgb Hct MCV MCH MCHC RDW Plt Count Seg Neutrophils % Lymphocytes % Monocytes % Eosinophils % Basophils % Absolute Neutrophils Absolute Lymphocytes Absolute Monocytes Absolute Eosinophils Absolute Basophils PT INR VBG pH 7.35 VBG pCO2 49.1 VBG HCO3 26.4 VBG Base Excess 0.1 Sodium Potassium Chloride Carbon Dioxide Anion Gap BUN Creatinine Est GFR ( Amer) Est GFR (Non-Af Amer) Glucose Lactic Acid 1.4 Calcium Total Bilirubin Direct Bilirubin Neonat Total Bilirubin Neonat Direct Bilirubin Neonat Indirect Bili AST ALT Alkaline Phosphatase Total Protein Albumin Serum HCG, Qual NEGATIVE Urine Color Urine Appearance Urine pH Ur Specific [employer] Urine Protein Urine Glucose (UA) Urine Ketones Urine Blood Urine Nitrite Urine Bilirubin Urine Urobilinogen Ur Leukocyte Esterase Urine RBC Urine WBC Ur Squamous Epith Cells Urine Bacteria Urine Mucus Urine Ascorbic Acid 02/25/19 11:36 WBC RBC Hgb Hct MCV MCH MCHC RDW Plt Count Seg Neutrophils % Lymphocytes % Monocytes % Eosinophils % Basophils % Absolute Neutrophils Absolute Lymphocytes Absolute Monocytes Absolute Eosinophils Absolute Basophils PT INR VBG pH VBG pCO2 VBG HCO3 VBG Base Excess Sodium Potassium Chloride Carbon Dioxide Anion Gap BUN Creatinine Est GFR ( Amer) Est GFR (Non-Af Amer) Glucose Lactic Acid Calcium Total Bilirubin Direct Bilirubin Neonat Total Bilirubin Neonat Direct Bilirubin Neonat Indirect Bili AST ALT Alkaline Phosphatase Total Protein Albumin Serum HCG, Qual Urine Color YELLOW Urine Appearance CLEAR Urine pH 6.0 Ur Specific [employer] 1.013 Urine Protein NEGATIVE Urine Glucose (UA) NEGATIVE Urine Ketones NEGATIVE Urine Blood SMALL H Urine Nitrite NEGATIVE Urine Bilirubin NEGATIVE Urine Urobilinogen 2.0 H Ur Leukocyte Esterase TRACE H Urine RBC 1-5 Urine WBC 1-5 Ur Squamous Epith Cells FEW Urine Bacteria 2+ Urine Mucus TRACE Urine Ascorbic Acid [address] 02/25/19 11:02 IMPRESSION: Subcutaneous inflammation with asymmetric soft tissue along the left aspect of the mandible. Hounsfield units measure 68. Overall size is 3.9 cm. This may represent developing abscess. There is no drainable collection at this time. Soft tissue neoplasm is thought to be less likely but not excluded. - Vital Signs Vital signs: Temp Pulse Resp BP Pulse Ox 98.7 F 134 H 19 108/69 99 02/25/19 14:15 02/25/19 10:16 02/25/19 13:01 02/25/19 13:01 02/25/19 13:01 - Laboratory Result Diagrams: 02/25/19 11:36 02/25/19 11:36 Laboratory results interpreted by me: 02/25/19 02/25/19 11:36 11:36 WBC 13.4 H Absolute Neutrophils 9.7 H Urine Blood SMALL H Urine Urobilinogen 2.0 H Ur Leukocyte Esterase TRACE H Urine Ascorbic Acid 40 H Discharge - Discharge Clinical Impression: Facial cellulitis Condition: Stable Disposition: ADMITTED INPATIENT Admitting Provider: Santos (Hospitalist) Unit Admitted: Medical Floor Referrals: ED HERRERA MD [Primary Care Provider] - Follow up as needed
[2019-02-25] MEDS ORDERED: ACETAMINOPHEN 325 MG TABLET PO PRN (17:01)
[2019-02-25] MEDS ORDERED: TEMAZEPAM 7.5 MG CAPSULE PO PRN (17:01)
[2019-02-25] MEDS ORDERED: ONDANSETRON 4 MG TAB.RAPDIS PO PRN (17:01)
[2019-02-25] MEDS ORDERED: MAGNESIUM HYDROXIDE SUSP 30 ML UDCUP PO PRN (17:01)
--- NOTE | 2019-02-25 17:15 | PDOC H&P ---
History of Present Illness Admission Date/PCP: 02/25/19 14:52 ED [facility] Patient complains of: Facial swelling History of Present Illness: AMA GARIBAY is a 43 year old female who has history of ADHD and history of MRSA skin infection in the past. Patient presents the emergency room due to acute onset of swelling of left side of her chin started 2 days ago and has progressed. This happened after she pulled a hair on her chin. Patient is afebrile but has elevated white count. Past Medical History Pulmonary Medical History: Reports: Pneumonia Denies: Tuberculosis Psychiatric Medical History: Reports: Attention Deficit Hyperactivity Disorder, Depression, Post Traumatic Stress Disorder Infectious Medical History: Reports: Methicillin-Resistant Staph Aureus Past Surgical History Past Surgical History: Denies: Pacemaker Social History Smoking Status: Never Smoker Hx Recreational Drug Use: No Hx Prescription Drug Abuse: No Family History Family History: CAD, CVA, DM Parental Family History Reviewed: Yes Children Family History Reviewed: Yes Sibling(s) Family History Reviewed.: Yes Medication/Allergy Home Medications: Diazepam [Valium 5 mg Tablet] 5 mg PO BIDP PRN 02/09/18 Dextroamphetamine Sulfate [Dextroamphetamine Sulfate ER] 15 mg PO QAM 02/25/19 Venlafaxine HCl ER [Effexor Xr 75 mg Cap.sr] 150 mg PO QPM 02/25/19 Allergies/Adverse Reactions: methocarbamol [Methocarbamol] Allergy (Verified 02/25/19 10:09) propranolol [From Inderal LA] Allergy (Verified 02/25/19 10:09) soy Allergy (Verified 02/25/19 10:09) Review of Systems All systems: reviewed and no additional remarkable complaints except as stated Physical Exam Vital Signs: Temp Pulse Resp BP Pulse Ox 98.7 F 134 H 19 108/69 99 02/25/19 14:15 02/25/19 10:16 02/25/19 13:01 02/25/19 13:01 02/25/19 13:01 Intake & Output 02/24/19 02/25/19 02/26/19 06:59 06:59 06:59 Intake Total 1050 Balance 1050 Weight 192 lb 3.889 oz Exam: Patient is no acute distress Alert oriented to time place person No anxiety or depression Head: atraumatic normocephalic Pupils: are equal reactive Neck: is supple and trachea is central no lymphadenopathy No pharyngeal erythema or exudates Heart: Regular rate and rhythm Lungs: clear no distress Abdomen: nontender nondistended Neurological exam: unremarkable Skin: Left area of the chin is edematous, erythematous and tender. No abscess or fluctuation palpated. Musculoskeletal: No joint swelling or effusion chronic lower back pain and tenderness No suicidal or homicidal ideation Results Laboratory Results: 02/25/19 11:36 02/25/19 11:36 02/25/19 02/25/19 02/25/19 11:36 11:36 11:36 WBC 13.4 H RBC 4.53 Hgb 14.3 Hct 41.6 MCV 92 MCH 31.6 MCHC 34.5 RDW 12.4 Plt Count 301 Seg Neutrophils % 72.8 Lymphocytes % 17.6 Monocytes % 8.7 Eosinophils % 0.5 Basophils % 0.4 Absolute Neutrophils 9.7 H Absolute Lymphocytes 2.3 Absolute Monocytes 1.2 Absolute Eosinophils 0.1 Absolute Basophils 0.1 VBG pH VBG pCO2 VBG HCO3 VBG Base Excess Sodium 141.2 Potassium 4.3 Chloride 99 Carbon Dioxide 28 Anion Gap 14 BUN 10 Creatinine 0.88 Est GFR ( Amer) > 60 Est GFR (Non-Af Amer) > 60 Glucose 101 Lactic Acid 1.4 Calcium 9.9 Total Bilirubin 0.7 AST 19 ALT 20 Alkaline Phosphatase 90 Total Protein 7.6 Albumin 4.3 Serum HCG, Qual Urine Color Urine Appearance Urine pH Ur Specific [place] Urine Protein Urine Glucose (UA) Urine Ketones Urine Blood Urine Nitrite Ur Leukocyte Esterase Ur Squamous Epith Cells 02/25/19 02/25/19 02/25/19 11:36 11:36 11:36 WBC RBC Hgb Hct MCV MCH MCHC RDW Plt Count Seg Neutrophils % Lymphocytes % Monocytes % Eosinophils % Basophils % Absolute Neutrophils Absolute Lymphocytes Absolute Monocytes Absolute Eosinophils Absolute Basophils VBG pH 7.35 VBG pCO2 49.1 VBG HCO3 26.4 VBG Base Excess 0.1 Sodium Potassium Chloride Carbon Dioxide Anion Gap BUN Creatinine Est GFR ( Amer) Est GFR (Non-Af Amer) Glucose Lactic Acid Calcium Total Bilirubin AST ALT Alkaline Phosphatase Total Protein Albumin Serum HCG, Qual NEGATIVE Urine Color YELLOW Urine Appearance CLEAR Urine pH 6.0 Ur Specific [place] 1.013 Urine Protein NEGATIVE Urine Glucose (UA) NEGATIVE Urine Ketones NEGATIVE Urine Blood SMALL H Urine Nitrite NEGATIVE Ur Leukocyte Esterase TRACE H Ur Squamous Epith Cells FEW Impressions: Soft Tissue Neck CT 02/25/19 11:02 IMPRESSION: Subcutaneous inflammation with asymmetric soft tissue along the left aspect of the mandible. Hounsfield units measure 68. Overall size is 3.9 cm. This may represent developing abscess. There is no drainable collection at this time. Soft tissue neoplasm is thought to be less likely but not excluded. Assessment and Plan - Diagnosis (1) Facial cellulitis Is this a current diagnosis for this admission?: Yes Plan: Admit to inpatient service. Start IV vancomycin. Follow blood cultures. Currently no drainable abscess. She started to developing an abscess, will consult surgery versus transfer for plastic surgery evaluation. (2) ADHD Is this a current diagnosis for this admission?: Yes Plan: Continue home medications
[2019-02-25] MEDS ORDERED: VANCOMYCIN HCL INJ 1000 MG VIAL IV SCH (18:00)
[2019-02-25] MEDS: VENLAFAXINE HCL 75 MG CAP.SR.24H PO SCH (19:00)
[2019-02-25] MEDS: OXYCODONE-ACETAMINOPHEN 5-325 MG TABLET PO PRN (19:04)
[2019-02-25] MEDS: VANCOMYCIN HCL 1,250 MG in DEXTROSE 5%-WATER 250 ML IV SCH (20:28)
[2019-02-25] MEDS: HEPARIN SOD (PORCINE) 5,000 UNIT/ML 1 ML SYRINGE SUBCUT SCH (22:19)
[2019-02-26] MEDS: OXYCODONE-ACETAMINOPHEN 5-325 MG TABLET PO PRN ×4 (01:05→21:20)
[2019-02-26 05:16] LABS: ABSOLUTE EOSINOPHILS # (AUTO) 0.2 10^3/uL (0.0-0.6); ABSOLUTE MONOCYTES (AUTO) 0.9 10^3/uL (0.1-1.4); BASOPHILS % (AUTO) 0.4 % (0-2); EOSINOPHILS % (AUTO) 2.3 % (0-6); HEMATOCRIT 36.5 % (36.0-47.0); HEMOGLOBIN 12.6 g/dL (12.0-15.5); LYMPHOCYTES % (AUTO) 19.8 % (13-45); MEAN CORPUSCULAR HEMOGLOBIN 31.9 pg (27.0-33.4); MEAN CORPUSCULAR HGB CONC 34.4 g/dL (32.0-36.0); MEAN CORPUSCULAR VOLUME 93 fl (80-97); MONOCYTES % (AUTO) 8.5 % (3-13); PLATELET COUNT 251 10^3/uL (150-450); RED BLOOD COUNT 3.94 10^6/uL (3.72-5.28); RED CELL DISTRIBUTION WIDTH 12.4 % (11.5-14.0); TOTAL CELLS COUNTED % (AUTO) 100 %; WHITE BLOOD COUNT 10.1 10^3/uL (4.0-10.5)
[2019-02-26 05:33] LABS: ANION GAP 10 (5-19); BLOOD UREA NITROGEN 14 mg/dL (7-20); CALCIUM 8.9 mg/dL (8.4-10.2); CARBON DIOXIDE 26 mmol/L (22-30); CHLORIDE 106 mmol/L (98-107); GLUCOSE 98 mg/dL (75-110); POTASSIUM 4.9 mmol/L (3.6-5.0); SODIUM 141.9 mmol/L (137-145)
[2019-02-26] MEDS: HEPARIN SOD (PORCINE) 5,000 UNIT/ML 1 ML SYRINGE SUBCUT SCH ×3 (06:12→21:21)
[2019-02-26] MEDS: NORMAL SALINE 1000 ML 1,000 ML IV PRN ×2 (06:14→21:23)
[2019-02-26] MEDS: VANCOMYCIN HCL 1,250 MG in DEXTROSE 5%-WATER 250 ML IV SCH ×2 (06:14→17:48)
[2019-02-26] MEDS ORDERED: DEXTROAMPHETAMINE SULFATE 15 MG PO SCH (08:00)
--- NOTE | 2019-02-26 12:44 | PDOC PROGRESS REPORT ---
Subjective Progress Note for:: 02/26/19 Subjective:: This is a 43 year old female who has history of ADHD and history of MRSA who was admitted for facial cellulitis. No acute event overnight. Her face remain swollen but she says the pain is less and her face feels less tight today. CT did not show a gross abscess but she does report of occasional drainage. Cellulitic lesions will be demarcated. Reason For Visit: FACIAL CELLULITIS Physical Exam Vital Signs: Temp Pulse Resp BP Pulse Ox 98.2 F 93 16 109/69 98 02/26/19 08:34 02/26/19 08:34 02/26/19 08:34 02/26/19 08:34 02/26/19 08:34 Intake & Output 02/25/19 02/26/19 02/27/19 06:59 06:59 06:59 Intake Total 1778 250 Balance 1778 250 Weight 214 lb 15.211 oz General appearance: PRESENT: no acute distress, well-developed, well-nourished Head exam: PRESENT: atraumatic, normocephalic, other - left sided facial swelling Eye exam: PRESENT: conjunctiva pink, EOMI, PERRLA. ABSENT: scleral icterus Ear exam: PRESENT: normal external ear exam Mouth exam: PRESENT: moist, tongue midline Neck exam: ABSENT: carotid bruit, JVD, lymphadenopathy, thyromegaly Respiratory exam: PRESENT: clear to auscultation bay. ABSENT: rales, rhonchi, wheezes Cardiovascular exam: PRESENT: RRR. ABSENT: diastolic murmur, rubs, systolic murmur Pulses: PRESENT: normal dorsalis pedis pul GI/Abdominal exam: PRESENT: normal bowel sounds, soft. ABSENT: distended, guarding, mass, organolmegaly, rebound, tenderness Rectal exam: PRESENT: deferred Neurological exam: PRESENT: alert, awake, oriented to person, oriented to place, oriented to time, oriented to situation, CN II-XII grossly intact. ABSENT: motor sensory deficit Results Laboratory Results: 02/26/19 04:36 02/26/19 04:36 02/26/19 02/26/19 04:36 04:36 WBC 10.1 RBC 3.94 Hgb 12.6 Hct 36.5 MCV 93 MCH 31.9 MCHC 34.4 RDW 12.4 Plt Count 251 Seg Neutrophils % 69.0 Lymphocytes % 19.8 Monocytes % 8.5 Eosinophils % 2.3 Basophils % 0.4 Absolute Neutrophils 7.0 Absolute Lymphocytes 2.0 Absolute Monocytes 0.9 Absolute Eosinophils 0.2 Absolute Basophils 0.0 Sodium 141.9 Potassium 4.9 Chloride 106 Carbon Dioxide 26 Anion Gap 10 BUN 14 Creatinine 0.81 Est GFR ( Amer) > 60 Est GFR (Non-Af Amer) > 60 Glucose 98 Calcium 8.9 Impressions: Soft Tissue Neck CT 02/25/19 11:02 IMPRESSION: Subcutaneous inflammation with asymmetric soft tissue along the left aspect of the mandible. Hounsfield units measure 68. Overall size is 3.9 cm. This may represent developing abscess. There is no drainable collection at this time. Soft tissue neoplasm is thought to be less likely but not excluded. Assessment and Plan - Diagnosis (1) Facial cellulitis Is this a current diagnosis for this admission?: Yes Plan: Slightly improved. Continue vancomycin. Will order for wound culture as she reports she had some drainage last night. (2) ADHD Is this a current diagnosis for this admission?: Yes Plan: Continue home meds. - Time Time Spent with patient: 15-24 minutes
[2019-02-26] MEDS: DIAZEPAM 5 MG TABLET PO PRN (14:43)
[2019-02-26] MEDS: VENLAFAXINE HCL 75 MG CAP.SR.24H PO SCH (17:48)
--- NOTE | 2019-02-26 21:36 | PDOC CONSULTATION ---
Consultation Consult Date: 02/26/19 Provider Consulted: LILIA TELLES Consult reason:: Abscess chin area History of Present Illness Admission Date/PCP: 02/25/19 14:52 ED [facility] History of Present Illness: AMA GARIBAY is a 43 year old female with history of MRSA infections in the past. She pulled a hair from her chin about 3 days ago and developed pains and swelling around tthe chin and left jaw and neck. Past Medical History Pulmonary Medical History: Reports: Pneumonia Denies: Tuberculosis Psychiatric Medical History: Reports: Attention Deficit Hyperactivity Disorder, Depression, Post Traumatic Stress Disorder Infectious Medical History: Reports: Methicillin-Resistant Staph Aureus Past Surgical History Past Surgical History: Reports: Other - multiple I&Ds for MRSA infection Denies: Pacemaker Social History Smoking Status: Never Smoker Frequency of Alcohol Use: Rare Hx Recreational Drug Use: No Drugs: None Hx Prescription Drug Abuse: No Family History Family History: CAD, CVA, DM Parental Family History Reviewed: Yes Children Family History Reviewed: No Sibling(s) Family History Reviewed.: No Medication/Allergy Home Medications: Diazepam [Valium 5 mg Tablet] 5 mg PO BIDP PRN 02/09/18 Dextroamphetamine Sulfate [Dextroamphetamine Sulfate ER] 15 mg PO QAM 02/25/19 Venlafaxine HCl ER [Effexor Xr 75 mg Cap.sr] 150 mg PO QPM 02/25/19 Allergies/Adverse Reactions: methocarbamol [Methocarbamol] Allergy (Verified 02/25/19 10:09) propranolol [From Inderal LA] Allergy (Verified 02/25/19 10:09) Review of Systems Constitutional: PRESENT: as per HPI, fever(s) Eyes: PRESENT: other - no visual/hearing changes Physical Exam Vital Signs: Temp Pulse Resp BP Pulse Ox 98.2 F 72 16 111/74 100 02/26/19 20:00 02/26/19 20:00 02/26/19 20:00 02/26/19 20:00 02/26/19 20:00 Intake & Output 02/25/19 02/26/19 02/27/19 06:59 06:59 06:59 Intake Total 1778 2029 Balance 1772029 Weight 97.5 kg General appearance: PRESENT: mild distress Head exam: PRESENT: atraumatic Eye exam: PRESENT: conjunctiva pink Throat exam: PRESENT: other - erythematous swelling chin area with tenderness left neck and mandible Cardiovascular exam: PRESENT: RRR Pulses: PRESENT: normal radial pulses Vascular exam: PRESENT: normal capillary refill GI/Abdominal exam: PRESENT: soft Rectal exam: PRESENT: deferred Extremities exam: PRESENT: full ROM Musculoskeletal exam: PRESENT: ambulatory Neurological exam: PRESENT: alert, oriented to person, oriented to place, o riented to time, oriented to situation Psychiatric exam: PRESENT: appropriate affect Skin exam: PRESENT: normal color, warm Results Laboratory Results: 02/26/19 04:36 02/26/19 04:36 02/26/19 02/26/19 04:36 04:36 WBC 10.1 RBC 3.94 Hgb 12.6 Hct 36.5 MCV 93 MCH 31.9 MCHC 34.4 RDW 12.4 Plt Count 251 Seg Neutrophils % 69.0 Lymphocytes % 19.8 Monocytes % 8.5 Eosinophils % 2.3 Basophils % 0.4 Absolute Neutrophils 7.0 Absolute Lymphocytes 2.0 Absolute Monocytes 0.9 Absolute Eosinophils 0.2 Absolute Basophils 0.0 Sodium 141.9 Potassium 4.9 Chloride 106 Carbon Dioxide 26 Anion Gap 10 BUN 14 Creatinine 0.81 Est GFR ( Amer) > 60 Est GFR (Non-Af Amer) > 60 Glucose 98 Calcium 8.9 Impressions: Soft Tissue Neck CT 02/25/19 11:02 IMPRESSION: Subcutaneous inflammation with asymmetric soft tissue along the left aspect of the mandible. Hounsfield units measure 68. Overall size is 3.9 cm. This may represent developing abscess. There is no drainable collection at this time. Soft tissue neoplasm is thought to be less likely but not excluded. Assessment & Plan - Diagnosis (1) abscess chin area Is this a current diagnosis for this admission?: Yes (2) Facial cellulitis Is this a current diagnosis for this admission?: Yes - Time Time Spent: 30 to 50 Minutes - Inpatient Certification I certify that my determination is in accordance with my understanding of Medicare's requirements for reasonable and necessary INPATIENT services [42 CFR 412.3e].: Yes Medical Necessity: Need for Pain Control, Need for IV Antibiotics, Need for Surgery - Plan Summary Plan Summary: Continue IV antibiotics For I&D chin abscess tomorrow NPO after midnight
[2019-02-27] MEDS: HEPARIN SOD (PORCINE) 5,000 UNIT/ML 1 ML SYRINGE SUBCUT SCH ×3 (06:06→21:43)
[2019-02-27] MEDS: VANCOMYCIN HCL 1,250 MG in DEXTROSE 5%-WATER 250 ML IV SCH (06:28)
[2019-02-27] MEDS: NORMAL SALINE 1000 ML 1,000 ML IV PRN ×2 (08:12→21:46)
[2019-02-27] MEDS: OXYCODONE-ACETAMINOPHEN 5-325 MG TABLET PO PRN ×3 (08:14→23:14)
[2019-02-27] MEDS: CLINDAMYCIN 600 MG/D5W RTU 600 MG/50 ML RTUPB IV SCH ×2 (15:18→21:46)
[2019-02-27] MEDS: VANCOMYCIN HCL 1,000 MG in DEXTROSE 5%-WATER 250 ML IV SCH ×2 (16:12→23:14)
--- NOTE | 2019-02-27 16:52 | PDOC PROGRESS REPORT ---
Subjective Progress Note for:: 02/27/19 Subjective:: This is a 43 year old female who has history of ADHD and history of MRSA who was admitted for facial cellulitis. 02/26: Her face remain swollen but she says the pain is less and her face feels less tight today. CT did not show a gross abscess but she does report of oc casional drainage. Cellulitic lesions will be demarcated. 02/27: No acute event overnight. Lesions on the neck have slightly gone beyond the demarcations. She was re-evaluated by surgery today who has deferred I&D and recommended IV antibiotics and reassessment tomorrow if there is no improvement. Reason For Visit: FACIAL CELLULITIS Physical Exam Vital Signs: Temp Pulse Resp BP Pulse Ox 98.2 F 65 18 118/77 97 02/27/19 16:00 02/27/19 16:00 02/27/19 16:00 02/27/19 16:00 02/27/19 16:00 Intake & Output 02/26/19 02/27/19 02/28/19 06:59 06:59 06:59 Intake Total 1778 2150 1250 Balance 1778 2150 1250 Weight 214 lb 15.211 oz 214 lb 11.684 oz General appearance: PRESENT: no acute distress, well-developed, well-nourished Head exam: PRESENT: atraumatic, normocephalic, other - left sided facial swelling Eye exam: PRESENT: conjunctiva pink, EOMI, PERRLA. ABSENT: scleral icterus Ear exam: PRESENT: normal external ear exam Mouth exam: PRESENT: moist, tongue midline Neck exam: ABSENT: carotid bruit, JVD, lymphadenopathy, thyromegaly Respiratory exam: PRESENT: clear to auscultation bay. ABSENT: rales, rhonchi, wheezes Cardiovascular exam: PRESENT: RRR. ABSENT: diastolic murmur, rubs, systolic murmur Pulses: PRESENT: normal dorsalis pedis pul GI/Abdominal exam: PRESENT: normal bowel sounds, soft. ABSENT: distended, guarding, mass, organolmegaly, rebound, tenderness Rectal exam: PRESENT: deferred Neurological exam: PRESENT: alert, awake, oriented to person, oriented to place, oriented to time, oriented to situation, CN II-XII grossly intact. ABSENT: mo tor sensory deficit Results Laboratory Results: 02/26/19 04:36 05/24/19 05:43 02/27/19 05:43 Creatinine 0.69 Est GFR ( Amer) > 60 Est GFR (Non-Af Amer) > 60 02/25/19 11:36 Clean Catch Midstream Urine Culture - Final NO GROWTH 2 DAYS Impressions: Soft Tissue Neck CT 02/25/19 11:02 IMPRESSION: Subcutaneous inflammation with asymmetric soft tissue along the left aspect of the mandible. Hounsfield units measure 68. Overall size is 3.9 cm. This may represent developing abscess. There is no drainable collection at this time. Soft tissue neoplasm is thought to be less likely but not excluded. Assessment and Plan - Diagnosis (1) Facial cellulitis Is this a current diagnosis for this admission?: Yes Plan: 02/27: Lesions on the neck have slightly gone beyond the demarcations. She was re-evaluated by surgery today who has deferred I&D and recommended IV antibiotics and reassessment tomorrow if there is no improvement. Wound culture growing GPC. Will add clindamycin. (2) ADHD Is this a current diagnosis for this admission?: Yes Plan: Continue home meds. - Time Time Spent with patient: 25-34 minutes
[2019-02-27] MEDS: VENLAFAXINE HCL 75 MG CAP.SR.24H PO SCH (17:47)
--- NOTE | 2019-02-27 19:05 | PDOC PROGRESS REPORT ---
Subjective Progress Note for:: 02/27/19 Subjective:: c/o left lower jaw pain/numbness Reason For Visit: FACIAL CELLULITIS Physical Exam Vital Signs: Temp Pulse Resp BP Pulse Ox 98.2 F 65 18 118/77 97 02/27/19 16:00 02/27/19 16:00 02/27/19 16:00 02/27/19 16:00 02/27/19 16:00 Intake & Output 02/26/19 02/27/19 02/28/19 06:59 06:59 06:59 Intake Total 1778 2150 2870 Balance 1778 2150 2870 Weight 97.5 kg 97.4 kg General appearance: PRESENT: mild distress Head exam: PRESENT: normocephalic Eye exam: PRESENT: EOMI Ear exam: PRESENT: normal external ear exam Mouth exam: PRESENT: other - 3-4 cm left jaw body inferior aspect cellulitis and swelling preauricular lymphadenopathy. min cellulitis ant superior chest wall Neck exam: PRESENT: full ROM Respiratory exam: PRESENT: clear to auscultation bay Cardiovascular exam: PRESENT: RRR Pulses: PRESENT: normal radial pulses, normal femoral pulses GI/Abdominal exam: PRESENT: soft Rectal exam: PRESENT: deferred Extremities exam: PRESENT: full ROM Musculoskeletal exam: PRESENT: full ROM Neurological exam: PRESENT: alert, awake, oriented to person, oriented to place Psychiatric exam: PRESENT: appropriate affect Skin exam: PRESENT: dry Results Laboratory Results: 02/26/19 04:36 02/27/19 05:43 02/27/19 05:43 Creatinine 0.69 Est GFR ( Amer) > 60 Est GFR (Non-Af Amer) > 60 02/25/19 11:36 Clean Catch Midstream Urine Culture - Final NO GROWTH 2 DAYS Impressions: Soft Tissue Neck CT 02/25/19 11:02 IMPRESSION: Subcutaneous inflammation with asymmetric soft tissue along the left aspect of the mandible. Hounsfield units measure 68. Overall size is 3.9 cm. This may represent developing abscess. There is no drainable collection at this time. Soft tissue neoplasm is thought to be less likely but not excluded. Assessment & Plan - Diagnosis (1) Facial cellulitis Is this a current diagnosis for this admission?: Yes (2) abscess chin area Is this a current diagnosis for this admission?: Yes - Plan Summary Plan Summary: impression- facial cellulits possible mrsa abscess of inferiior jaw discussed with ENT who reviewed the ct there currently no formed abscess for drainage, currently more of a phlegmon which if drained risks injury to submental nerve and marginal mandibular nerve recommend- cont iv abx warm moist compresses and may repeat ct in 1 -2 days to see if drainable abscess develops.
[2019-02-27] MEDS: DIAZEPAM 5 MG TABLET PO PRN (23:15)
[2019-02-28] MEDS: CLINDAMYCIN 600 MG/D5W RTU 600 MG/50 ML RTUPB IV SCH ×3 (05:43→22:01)
[2019-02-28] MEDS: HEPARIN SOD (PORCINE) 5,000 UNIT/ML 1 ML SYRINGE SUBCUT SCH ×3 (05:49→21:50)
[2019-02-28] MEDS: VANCOMYCIN HCL 1,000 MG in DEXTROSE 5%-WATER 250 ML IV SCH ×3 (06:37→23:23)
--- NOTE | 2019-02-28 08:51 | PDOC PROGRESS REPORT ---
Subjective Progress Note for:: 02/28/19 Subjective:: less pains Reason For Visit: FACIAL CELLULITIS Physical Exam Vital Signs: Temp Pulse Resp BP Pulse Ox 97.7 F 79 16 137/77 H 96 02/28/19 08:00 02/28/19 08:00 02/28/19 08:00 02/28/19 08:00 02/28/19 08:00 Intake & Output 02/27/19 02/28/19 03/01/19 06:59 06:59 06:59 Intake Total 2150 4990 Balance 2150 4990 Weight 97.4 kg 91.6 kg Exam: inflammation at the chin area and neck IMPROVING Results Laboratory Results: 02/26/19 04:36 02/27/19 05:43 02/25/19 11:36 Clean Catch Midstream Urine Culture - Final NO GROWTH 2 DAYS Impressions: Soft Tissue Neck CT 02/25/19 11:02 IMPRESSION: Subcutaneous inflammation with asymmetric soft tissue along the left aspect of the mandible. Hounsfield units measure 68. Overall size is 3.9 cm. This may represent developing abscess. There is no drainable collection at this time. Soft tissue neoplasm is thought to be less likely but not excluded. Assessment & Plan - Diagnosis (1) abscess chin area Is this a current diagnosis for this admission?: Yes (2) Facial cellulitis Is this a current diagnosis for this admission?: Yes - Time Time Spent with patient: 15-24 minutes - Inpatient Certification Medical Necessity: Need for IV Antibiotics - Plan Summary Plan Summary: Need continued antibiotic for at least 48-72 hrs I&D cancelled because abscess/cellulitis improving
[2019-02-28] MEDS: OXYCODONE-ACETAMINOPHEN 5-325 MG TABLET PO PRN ×2 (10:34→18:08)
--- NOTE | 2019-02-28 12:37 | PDOC PROGRESS REPORT ---
Subjective Progress Note for:: 02/28/19 Subjective:: This is a 43 year old female who has history of ADHD and history of MRSA who was admitted for facial cellulitis. 02/26: Her face remain swollen but she says the pain is less and her face feels less tight today. CT did not show a gross abscess but she does report of oc casional drainage. Cellulitic lesions will be demarcated. 02/27: Lesions on the neck have slightly gone beyond the demarcations. She was re-evaluated by surgery today who has deferred I&D and recommended IV antibiotics and reassessment tomorrow if there is no improvement. 02/28: No acute event overnight. Lesions have significantly improved after adding clindamycin yesterday. There is significantly less erythema on the face and neck area. I&D has been cancelled as there is improvement in the lesions. Reason For Visit: FACIAL CELLULITIS Physical Exam Vital Signs: Temp Pulse Resp BP Pulse Ox 98.0 F 79 16 119/82 98 02/28/19 11:18 02/28/19 11:18 02/28/19 11:18 02/28/19 11:18 02/28/19 11:18 Intake & Output 02/27/19 02/28/19 03/01/19 06:59 06:59 06:59 Intake Total 2150 4990 250 Balance 2150 4990 250 Weight 214 lb 11.684 oz 201 lb 15.095 oz General appearance: PRESENT: no acute distress, well-developed, well-nourished Head exam: PRESENT: atraumatic, normocephalic Eye exam: PRESENT: conjunctiva pink, EOMI, PERRLA. ABSENT: scleral icterus Ear exam: PRESENT: normal external ear exam Mouth exam: PRESENT: moist, tongue midline Neck exam: ABSENT: carotid bruit, JVD, lymphadenopathy, thyromegaly Respiratory exam: PRESENT: clear to auscultation bay. ABSENT: rales, rhonchi, wheezes Cardiovascular exam: PRESENT: RRR. ABSENT: diastolic murmur, rubs, systolic murmur Pulses: PRESENT: normal dorsalis pedis pul GI/Abdominal exam: PRESENT: normal bowel sounds, soft. ABSENT: distended, guarding, mass, organolmegaly, rebound, tenderness Rectal exam: PRESENT: deferred Extremities exam: PRESENT: full ROM. ABSENT: calf tenderness, clubbing, pedal edema Neurological exam: PRESENT: alert, awake, oriented to person, oriented to place, oriented to time, oriented to situation, CN II-XII grossly intact. ABSENT: motor sensory deficit Results Laboratory Results: 02/26/19 04:36 02/27/19 05:43 02/26/19 13:40 Face - Chin Gram Stain - Final 02/26/19 13:40 Face - Chin Wound Culture - Final Mrsa (Meth Resis Staph Aureus) 02/25/19 11:36 Clean Catch Midstream Urine Culture - Final NO GROWTH 2 DAYS Impressions: Soft Tissue Neck CT 02/25/19 11:02 IMPRESSION: Subcutaneous inflammation with asymmetric soft tissue along the left aspect of the mandible. Hounsfield units measure 68. Overall size is 3.9 cm. This may represent developing abscess. There is no drainable collection at this time. Soft tissue neoplasm is thought to be less likely but not excluded. Assessment and Plan - Diagnosis (1) Facial cellulitis Is this a current diagnosis for this admission?: Yes Plan: 02/27: Lesions on the neck have slightly gone beyond the demarcations. She was re-evaluated by surgery today who has deferred I&D and recommended IV antibiotics and reassessment tomorrow if there is no improvement. Wound culture growing GPC. Will add clindamycin. 02/28: Lesions have significantly improved after adding clindamycin yesterday. There is significantly less erythema on the face and neck area. I&D has been cancelled as there is improvement in the lesions. (2) ADHD Is this a current diagnosis for this admission?: Yes Plan: Continue home meds. - Time Time Spent with patient: 15-24 minutes
[2019-02-28 15:26] LABS: VANCOMYCIN,TROUGH 17.2 ug/mL (5.0-20.0)
[2019-02-28] MEDS: VENLAFAXINE HCL 75 MG CAP.SR.24H PO SCH (17:58)
[2019-02-28] MEDS: NORMAL SALINE 1000 ML 1,000 ML IV PRN (17:59)
[2019-02-28] MEDS: MUPIROCIN 2% OINTMENT 22 GM TP SCH (18:02)
[2019-03-01] MEDS: DIAZEPAM 5 MG TABLET PO PRN (00:45)
[2019-03-01] MEDS: OXYCODONE-ACETAMINOPHEN 5-325 MG TABLET PO PRN ×4 (00:45→20:04)
[2019-03-01] MEDS: HEPARIN SOD (PORCINE) 5,000 UNIT/ML 1 ML SYRINGE SUBCUT SCH ×3 (05:46→22:10)
[2019-03-01] MEDS: CLINDAMYCIN 600 MG/D5W RTU 600 MG/50 ML RTUPB IV SCH ×3 (05:48→22:09)
[2019-03-01] MEDS: VANCOMYCIN HCL 1,000 MG in DEXTROSE 5%-WATER 250 ML IV SCH (06:55)
--- NOTE | 2019-03-01 11:53 | PDOC PROGRESS REPORT ---
Subjective Progress Note for:: 03/01/19 Subjective:: This is a 43 year old female who has history of ADHD and history of MRSA who was admitted for facial cellulitis. 02/26: Her face remain swollen but she says the pain is less and her face feels less tight today. CT did not show a gross abscess but she does report of oc casional drainage. Cellulitic lesions will be demarcated. 02/27: Lesions on the neck have slightly gone beyond the demarcations. She was re-evaluated by surgery today who has deferred I&D and recommended IV antibiotics and reassessment tomorrow if there is no improvement. 02/28: Lesions have significantly improved after adding clindamycin yesterday. There is significantly less erythema on the face and neck area. I&D has been cancelled as there is improvement in the lesions. 03/01: No acute event overnight. Her facial cellulitis continue to improve. Wound culture grew MRSA. Discontinue vancomycin and continue clindamycin. Reason For Visit: FACIAL CELLULITIS Physical Exam Vital Signs: Temp Pulse Resp BP Pulse Ox 98.0 F 61 16 119/76 98 03/01/19 08:00 03/01/19 08:00 03/01/19 08:00 03/01/19 08:00 03/01/19 08:00 Intake & Output 02/28/19 03/01/19 03/02/19 06:59 06:59 06:59 Intake Total 4990 4338 Balance 4990 4338 Weight 201 lb 15.095 oz 202 lb 13.204 oz General appearance: PRESENT: no acute distress, well-developed, well-nourished Head exam: PRESENT: atraumatic, normocephalic, other - facial swelling and redness resolving Eye exam: PRESENT: conjunctiva pink, EOMI, PERRLA. ABSENT: scleral icterus Ear exam: PRESENT: normal external ear exam Mouth exam: PRESENT: moist, tongue midline Neck exam: ABSENT: carotid bruit, JVD, lymphadenopathy, thyromegaly Respiratory exam: PRESENT: clear to auscultation bay. ABSENT: rales, rhonchi, wheezes Cardiovascular exam: PRESENT: RRR. ABSENT: diastolic murmur, rubs, systolic murmur Pulses: PRESENT: normal dorsalis pedis pul GI/Abdominal exam: PRESENT: normal bowel sounds, soft. ABSENT: distended, guarding, mass, organolmegaly, rebound, tenderness Rectal exam: PRESENT: deferred Extremities exam: PRESENT: full ROM. ABSENT: calf tenderness, clubbing, pedal edema Neurological exam: PRESENT: alert, awake, oriented to person, oriented to place, oriented to time, oriented to situation, CN II-XII grossly intact. ABSENT: motor sensory deficit Skin exam: PRESENT: dry, intact, warm. ABSENT: cyanosis, rash Results Laboratory Results: 02/26/19 04:36 02/28/19 14:18 02/28/19 14:18 Creatinine 0.77 Est GFR ( Amer) > 60 Est GFR (Non-Af Amer) > 60 02/26/19 13:40 Face - Chin Gram Stain - Final 02/26/19 13:40 Face - Chin Wound Culture - Final Mrsa (Meth Resis Staph Aureus) Impressions: Soft Tissue Neck CT 02/25/19 11:02 IMPRESSION: Subcutaneous inflammation with asymmetric soft tissue along the left aspect of the mandible. Hounsfield units measure 68. Overall size is 3.9 cm. This may represent developing abscess. There is no drainable collection at this time. Soft tissue neoplasm is thought to be less likely but not excluded. Assessment and Plan - Diagnosis (1) Facial cellulitis Is this a current diagnosis for this admission?: Yes Plan: 02/27: Lesions on the neck have slightly gone beyond the demarcations. She was re-evaluated by surgery today who has deferred I&D and recommended IV antibiotics and reassessment tomorrow if there is no improvement. Wound culture growing GPC. Will add clindamycin. 02/28: Lesions have significantly improved after adding clindamycin yesterday. There is significantly less erythema on the face and neck area. I&D has been cancelled as there is improvement in the lesions. 03/01: Resolving. Wound culture grew MRSA. Discontinue vancomycin and continue clindamycin. (2) ADHD Is this a current diagnosis for this admission?: Yes Plan: Continue home meds. - Time Time Spent with patient: 15-24 minutes
[2019-03-01] MEDS: MUPIROCIN 2% OINTMENT 22 GM TP SCH ×2 (12:45→19:04)
--- NOTE | 2019-03-01 17:41 | PDOC PROGRESS REPORT ---
Subjective Progress Note for:: 03/01/19 Subjective:: less pains chin area. No pains in the neck Reason For Visit: FACIAL CELLULITIS Physical Exam Vital Signs: Temp Pulse Resp BP Pulse Ox 98.1 F 74 16 122/80 96 03/01/19 15:39 03/01/19 15:39 03/01/19 15:39 03/01/19 15:39 03/01/19 15:39 Intake & Output 02/28/19 03/01/19 03/02/19 06:59 06:59 06:59 Intake Total 4990 4338 Balance 4990 4338 Weight 91.6 kg 92 kg Exam: Cellulitis of left chin area continues to improve Results Laboratory Results: 02/26/19 04:36 02/28/19 14:18 Impressions: Soft Tissue Neck CT 02/25/19 11:02 IMPRESSION: Subcutaneous inflammation with asymmetric soft tissue along the left aspect of the mandible. Hounsfield units measure 68. Overall size is 3.9 cm. This may represent developing abscess. There is no drainable collection at this time. Soft tissue neoplasm is thought to be less likely but not excluded. Assessment & Plan - Diagnosis (1) abscess chin area Is this a current diagnosis for this admission?: Yes (2) Facial cellulitis Is this a current diagnosis for this admission?: Yes - Time Time Spent with patient: 15-24 minutes - Plan Summary Plan Summary: Continue antibiotic therapy Will sign off
[2019-03-01] MEDS: VENLAFAXINE HCL 75 MG CAP.SR.24H PO SCH (19:03)
[2019-03-02] MEDS: CLINDAMYCIN 600 MG/D5W RTU 600 MG/50 ML RTUPB IV SCH (06:30)
[2019-03-02] MEDS: HEPARIN SOD (PORCINE) 5,000 UNIT/ML 1 ML SYRINGE SUBCUT SCH (06:30)
[2019-03-02] MEDS: OXYCODONE-ACETAMINOPHEN 5-325 MG TABLET PO PRN (06:39)
[2019-03-02 09:00] VITALS: BP 127/81
[2019-03-02] MEDS: MUPIROCIN 2% OINTMENT 22 GM TP SCH (10:47)
--- NOTE | 2019-03-02 16:27 | PDOC DISCHARGE SUMMARY ---
General - Admit/Disc Date/PCP Admission Date/Primary Care Provider: 02/25/19 14:52 ED HERRERA Discharge Date: 03/02/19 - Discharge Diagnosis (1) Facial cellulitis Is this a current diagnosis for this admission?: Yes (2) ADHD Is this a current diagnosis for this admission?: Yes - Additional Information Discharge Diet: As Tolerated Discharge Activity: Activity As Tolerated, Balance Activity w/Rest, Slowly Increase Activity Prescriptions: Clindamycin HCl [Cleocin 300 mg Capsule] 300 mg PO Q8H 10 Days #30 capsule Mupirocin [Bactroban 2% Ointment 22 gm] 1 applic TP BID #1 tube Home Medications: Diazepam [Valium 5 mg Tablet] 5 mg PO BIDP PRN 02/09/18 Dextroamphetamine Sulfate [Dextroamphetamine Sulfate ER] 15 mg PO QAM 02/25/19 Venlafaxine HCl ER [Effexor Xr 75 mg Cap.sr] 150 mg PO QPM 02/25/19 Clindamycin HCl [Cleocin 300 mg Capsule] 300 mg PO Q8H 10 Days #30 capsule 03/02/19 Mupirocin [Bactroban 2% Ointment 22 gm] 1 applic TP BID #1 tube 03/02/19 History of Present Illness History of Present Illness: Admitting hospitalist's H&P: AMA GARIBAY is a 43 year old female who has history of ADHD and history of MRSA skin infection in the past. Patient presents the emergency room due to acute onset of swelling of left side of her chin started 2 days ago and has progressed. This happened after she pulled a hair on her chin. Patient is afebrile but has elevated white count. Hospital Course Hospital Course: This is a 43 year old female who has history of ADHD and history of MRSA who was admitted for facial cellulitis. 02/26: Her face remain swollen but she says the pain is less and her face feels less tight today. CT did not show a gross abscess but she does report of occasional drainage. Cellulitic lesions will be demarcated. 02/27: Lesions on the neck have slightly gone beyond the demarcations. She was re-evaluated by surgery today who has deferred I&D and recommended IV antibiotics and reassessment tomorrow if there is no improvement. 02/28: Lesions have significantly improved after adding clindamycin yesterday. There is significantly less erythema on the face and neck area. I&D has been cancelled as there is significant improvement in the lesions. 03/01: No acute event overnight. Her facial cellulitis continue to improve. Wound culture grew MRSA. Discontinue vancomycin and continue clindamycin. Patient continued to significantly improve on clindamycin. He only had minimal swelling and erythema on the chin area on day of discharge. He will be discharged on PO clindamycin. She will also be on intranasal mupirocin and daily chlorhexidine baths for MRSA decontamination Physical Exam Vital Signs: Temp Pulse Resp BP Pulse Ox 97.7 F 73 15 127/81 H 97 03/02/19 10:49 03/02/19 10:49 03/02/19 10:49 03/02/19 10:49 03/02/19 10:49 Intake & Output 03/01/19 03/02/19 03/03/19 06:59 06:59 06:59 Intake Total 4338 840 Balance 4338 840 Weight 202 lb 13.204 oz 200 lb 2.876 oz General appearance: PRESENT: no acute distress, well-developed, well-nourished Head exam: PRESENT: atraumatic, normocephalic Eye exam: PRESENT: conjunctiva pink, EOMI, PERRLA. ABSENT: scleral icterus Ear exam: PRESENT: normal external ear exam Mouth exam: PRESENT: moist, tongue midline Neck exam: ABSENT: carotid bruit, JVD, lymphadenopathy, thyromegaly Respiratory exam: PRESENT: clear to auscultation bay. ABSENT: rales, rhonchi, wheezes Cardiovascular exam: PRESENT: RRR. ABSENT: diastolic murmur, rubs, systolic murmur Pulses: PRESENT: normal dorsalis pedis pul GI/Abdominal exam: PRESENT: normal bowel sounds, soft. ABSENT: distended, guarding, mass, organolmegaly, rebound, tenderness Rectal exam: PRESENT: deferred Extremities exam: PRESENT: full ROM. ABSENT: calf tenderness, clubbing, pedal edema Neurological exam: PRESENT: alert, awake, oriented to person, oriented to place, oriented to time, oriented to situation, CN II-XII grossly intact. ABSENT: motor sensory deficit Skin exam: PRESENT: other - Minimal swelling and erythema on the chin area Results Laboratory Results: 02/26/19 04:36 02/28/19 14:18 02/25/19 12:50 Blood Blood Culture - Final NO GROWTH IN 5 DAYS 02/25/19 11:36 Blood Blood Culture - Final NO GROWTH IN 5 DAYS Impressions: Soft Tissue Neck CT 02/25/19 11:02 IMPRESSION: Subcutaneous inflammation with asymmetric soft tissue along the left aspect of the mandible. Hounsfield units measure 68. Overall size is 3.9 cm. This may represent developing abscess. There is no drainable collection at this time. Soft tissue neoplasm is thought to be less likely but not excluded. Qualifiers - * PATIENT BEING DISCHARGED WITH ANY OF THE FOLLOWING DIAGNOSIS: No Acute Heart Failure Is this a Heart Failure Patient?: No
== END 2019-03-02 11:12 | disposition home or self-care (01) | DRG 603 ==
LOC: ER 10:06 → EH 14:52 → 4N 18:41
PROVIDERS: ADMIT Family Medicine; ATTEND Family Medicine
DX: L03.211 Cellulitis of face (principal); L02.01 Cutaneous abscess of face; K12.2 Cellulitis and abscess of mouth; B95.62 Methicillin resistant Staphylococcus aureus infection as the cause of diseases classified elsewhere; F90.9 Attention-deficit hyperactivity disorder, unspecified type; F43.10 Post-traumatic stress disorder, unspecified; Z86.14 Personal history of Methicillin resistant Staphylococcus aureus infection; Z83.3 Family history of diabetes mellitus; Z91.018 Allergy to other foods
CPT/HCPCS: 36415; 70491; 80048; 80053; 80202; 81001; 82565; 82803; 83036; 83605; 84703; 85025; 85610; 87040; 87070; 87077; 87086; 87186; 87205; 96365; 96375; 99285; J1885; J3370; J3490; J7030; J7060

== ENCOUNTER 2019-09-11 00:09 | Emergency (ER) | payer MEDICAID ==
[2019-09-11 01:17] LABS: ABSOLUTE BASOPHILS # (AUTO) 0.1 10^3/uL (0.0-0.2); ABSOLUTE LYMPHOCYTES (AUTO) 2.6 10^3/uL (0.5-4.7); ABSOLUTE MONOCYTES (AUTO) 0.9 10^3/uL (0.1-1.4); ABSOLUTE NEUT (AUTO) 8.4 10^3/uL (1.7-8.2); BASOPHILS % (AUTO) 0.7 % (0-2); HEMATOCRIT 41.2 % (36.0-47.0); HEMOGLOBIN 14.1 g/dL (12.0-15.5); LYMPHOCYTES % (AUTO) 21.7 % (13-45); MEAN CORPUSCULAR HGB CONC 34.2 g/dL (32.0-36.0); MEAN CORPUSCULAR VOLUME 91 fl (80-97); MONOCYTES % (AUTO) 7.4 % (3-13); PLATELET COUNT 325 10^3/uL (150-450); RED BLOOD COUNT 4.54 10^6/uL (3.72-5.28); RED CELL DISTRIBUTION WIDTH 13.2 % (11.5-14.0); SEGMENTED NEUTROPHILS % (AUTO) 70.2 % (42-78); TOTAL CELLS COUNTED % (AUTO) 100 %
[2019-09-11 01:29] LABS: APPEARANCE,URINE SLIGHTLY-CLOUDY; BILIRUBIN,URINE NEGATIVE (NEGATIVE); COLOR,URINE YELLOW; GLUCOSE, URINE NEGATIVE (NEGATIVE); KETONES,URINE 20 mg/dL (NEGATIVE); LEUKOCYTE ESTERASE,URINE LARGE (NEGATIVE); NITRITE,URINE NEGATIVE (NEGATIVE); PROTEIN,URINE 30 mg/dL (NEGATIVE); URINE SPECIFIC GRAVITY 1.028; UROBILINOGEN,URINE NEGATIVE mg/dL (<2.0)
[2019-09-11 01:34] LABS: ALBUMIN 4.8 g/dL (3.5-5.0); ALKALINE PHOSPHATASE 85 U/L (38-126); ANION GAP 14 (5-19); ASPARTATE AMINO TRANSFERASE 35 U/L (14-36); BILIRUBIN,DIRECT 0.1 mg/dL (0.0-0.4); BILIRUBIN,TOTAL 1.1 mg/dL (0.2-1.3); BLOOD UREA NITROGEN 17 mg/dL (7-20); CALCIUM 10.2 mg/dL (8.4-10.2); CARBON DIOXIDE 25 mmol/L (22-30); CHLORIDE 105 mmol/L (98-107); GLUCOSE 106 mg/dL (75-110); POTASSIUM 4.1 mmol/L (3.6-5.0); TOTAL PROTEIN 8.4 g/dL (6.3-8.2)
[2019-09-11 01:41] LABS: URINE BARBITURATES SCREEN NEGATIVE; URINE COCAINE SCREEN NEGATIVE; URINE MARIJUANA (THC) SCREEN NEGATIVE; URINE METHADONE SCREEN NEGATIVE; URINE PHENCYCLIDINE SCREEN NEGATIVE
[2019-09-11 01:42] LABS: URINE BENZODIAZEPINES SCREEN UNCONFIRMED POSITIVE
[2019-09-11] MEDS ORDERED: PROMETHAZINE HCL 25 MG TABLET PO ONE (02:59)
[2019-09-11] MEDS ORDERED: MECLIZINE HCL 25 MG TABLET PO ONE (02:59)
[2019-09-11] MEDS ORDERED: NORMAL SALINE 1000 ML 1,000 ML IV ONE (02:59)
--- NOTE | 2019-09-11 03:01 | ER Document Report ---
ED Substance Abuse / Acc. OD - General Chief Complaint: Accidental Overdose Stated Complaint: FAINTED Time Seen by Provider: 09/11/19 02:07 Notes: Patient is a 44-year-old female that comes emergency department for chief complaint of feeling like she is weak, dehydrated, and shaky after taking more methamphetamine than she planned to this evening. She states that she was "trying to get away and have fun", states she states that she finished the little baggy that she had and it must of had more in it than she expected. She states that normally she would take 0.5 g of methamphetamine but she thinks she took around 2 g of methamphetamine tonight. She denies chest pain, shortness of breath, difficulty breathing, passing out, vomiting, fever. She states that when she gets up she feels lightheaded and like her head is spinning around. She denies alcohol. Past medical history of intermittent substance abuse, anxiety/depression, PTSD. She denies suicidal intentions or ideations, she states she was just trying to have fun. She is here with her significant other. TRAVEL OUTSIDE OF THE [place] IN LAST 30 DAYS: No - Related Data Allergies/Adverse Reactions: methocarbamol [Methocarbamol] Allergy (Verified 02/25/19 10:09) propranolol [From Inderal [place]] Allergy (Verified 02/25/19 10:09) Home Medications: dexadrin. valium. effexor Past Medical History - General Information source: Patient - Social History Smoking Status: Never Smoker Frequency of alcohol use: None Drug Abuse: Heroin, Methamphetamine Family History: CAD, CVA, DM Patient has suicidal ideation: No Patient has homicidal ideation: No Pulmonary Medical History: Reports: Hx Pneumonia Denies: Hx Tuberculosis Renal/ Medical History: Denies: Hx Peritoneal Dialysis GI Medical History: Reports: Hx Gastritis, Hx Irritable Bowel, Hx Colonoscopy, Hx Endoscopy Musculoskeletal Medical History: Reports Hx Musculoskeletal Trauma Skin Medical History: Reports Hx MRSA Psychiatric Medical History: Reports: Hx Anxiety, Hx Attention Deficit Hyperactivity Disorder, Hx Depression, Hx Post Traumatic Stress Disorder Infectious Medical History: Reports: Hx MRSA Past Surgical History: Reports: Hx Dilation and Curettage - , Hx Oral Surgery - wisdom teeth, Other - multiple I&Ds for MRSA infection. Denies: Hx Pacemaker - Immunizations Hx Diphtheria, Pertussis, Tetanus Vaccination: No Review of Systems - Review of Systems Constitutional: See HPI EENT: No symptoms reported Cardiovascular: See HPI Respiratory: See HPI Gastrointestinal: No symptoms reported Genitourinary: No symptoms reported Female Genitourinary: No symptoms reported Musculoskeletal: No symptoms reported Skin: No symptoms reported Hematologic/Lymphatic: No symptoms reported Neurological/Psychological: No symptoms reported Physical Exam - Vital signs Vitals: Temp Pulse Resp BP Pulse Ox 98.0 F 101 H 16 122/74 100 09/11/19 00:16 09/11/19 00:16 09/11/19 00:16 09/11/19 00:16 09/11/19 00:16 - Notes Notes: GENERAL: Alert, interacts well. No acute distress. HEAD: Normocephalic, atraumatic. EYES: Pupils equal, round, and reactive to light. Extraocular movements intact. ENT: Oral mucosa moist, tongue midline. Oropharynx unremarkable. Airway patent. Nares patent, no nasal septal hematoma, TM's intact. NECK: Full range of motion. Supple. Trachea midline. LUNGS: Clear to auscultation bilaterally, no wheezes, rales, or rhonchi. No respiratory distress. HEART: Regular rate and rhythm. No murmur ABDOMEN: Soft, non-tender. Non-distended. Bowel sounds present in all 4 quadrants. GENITOURINARY: Deferred EXTREMITIES: Moves all 4 extremities spontaneously. No edema, normal radial and dorsalis pedis pulses bilaterally. No cyanosis. BACK: no cervical, thoracic, lumbar midline tenderness. No saddle anesthesia, normal distal neurovascular exam. Moves all extremities in full range of motion. NEUROLOGICAL: Alert and oriented x3. Normal speech. Cranial nerves II through XII grossly intact. PSYCH: Normal affect, normal mood. Relaxed, talkative, well-appearing SKIN: A few scattered scabs over her arms and forearms with no current fresh areas or noted erythema, fluctuance, or induration. Course - Re-evaluation Re-evalutation: Patient is smiling, very comfortable appearing, very talkative. Soft benign abdomen, no tachycardia, pupils are not dilated, no sign of skin infection, no reported chest pain, no reported fever, no reported shortness of breath. She was given IV fluids. She was given meclizine and Phenergan. When I reevaluate patient she states she feels much better and immediately was asking to leave. Patient did not report syncope to me. CBC, chemistry nonspecific, EKG unremarkable, patient not reporting chest pain, shortness of breath, or any current symptoms other than feeling tired and dehydrated. Urinalysis nonspecific but patient states she does started her menstrual cycle and I suspect a contamination component, no CVA tenderness, abdominal pain, dysuria, culture was placed. I discussed with patient. She states that she was not attempting to kill herself, she is not suicidal or homicidal, she states that she has a therapist, she states that she has been off of methamphetamine for long periods of time in the past and just wanted to recuperate faster this round. She states the understanding of extreme risk of use of these medications. Her is supportive of this. She is requesting to be discharged and follow-up with her therapist for additional management. Stable at time of discharge. - Vital Signs Vital signs: Temp Pulse Resp BP Pulse Ox 97.9 F 91 16 106/72 96 09/11/19 05:13 09/11/19 05:13 09/11/19 05:13 09/11/19 05:13 09/11/19 05:13 - Laboratory Result Diagrams: 09/11/19 01:00 09/11/19 01:00 Laboratory results interpreted by me: 09/11/19 09/11/19 09/11/19 01:00 01:00 01:00 WBC 12.0 H Absolute Neuts (auto) 8.4 H Total Protein 8.4 H Urine Protein 30 H Urine Ketones 20 H Urine Blood LARGE H Ur Leukocyte Esterase LARGE H Urine Ascorbic Acid 40 H - EKG Interpretation by Me Additional EKG results interpreted by me: EKG sinus sinus rhythm at a rate of 96, sinus rhythm. QTC of 476. Normal axis. No T wave inversions or ST segment changes in consecutive leads. Discharge - Discharge Clinical Impression: Methamphetamine abuse, Dehydration Condition: Stable Disposition: HOME, SELF-CARE Additional Instructions: Continue to hydrate at home. Do not use methamphetamines or any illegal/recreational substance, these are extremely dangerous and will cause terrible effects and lead to your . Follow-up with your therapist for additional management. Return for any concerning symptoms including fever, vomiting, difficulty breathing, passing out, or any other concerning or worsening symptoms.
[2019-09-11 05:14] VITALS: BP 106/72
--- NOTE | 2019-09-11 13:02 | EKG REPORT ---
SEVERITY:- NORMAL ECG - SINUS RHYTHM : Confirmed by: Liliane Bledsoe MD 11-Sep-2019 13:00:37
== END 2019-09-11 05:13 | disposition home or self-care (01) ==
LOC: ER 00:09
DX: F15.10 Other stimulant abuse, uncomplicated (principal); E86.0 Dehydration; R55 Syncope and collapse; R53.1 Weakness; Z86.14 Personal history of Methicillin resistant Staphylococcus aureus infection
CPT/HCPCS: 93005; 99284; 96360; 36415; 87086; 85025; 81025; 80053; 81001; 80307; 93010; J3490; J7030

== ENCOUNTER 2019-10-20 16:53 | Emergency (ER) | payer MEDICAID, OTHER ==
--- NOTE | 2019-10-20 18:35 | ER Document Report ---
ED General - General Chief Complaint: Overdose Stated Complaint: POSSIBLE OVERDOSE Time Seen by Provider: 10/20/19 18:33 Mode of Arrival: Medic Information source: Patient TRAVEL OUTSIDE OF THE [place] IN LAST 30 DAYS: No - HPI Onset: Other - Today Onset/Duration: Sudden Quality of pain: No pain Severity: None Associated symptoms: Other - numbness, tingling, blurry vision Exacerbated by: Denies Relieved by: Other - time Similar symptoms previously: Yes - patient has Sharri before Recently seen / treated by doctor: No Notes: 44 year old female with a history of polysubstance abuse, ADHD, Anxiety, Depression, PTSD here for concern of an overdose of cocaine. The patient says she has been "fairly clean" for about 14 years but she recently relapsed due to some life stressors. The patient says she shot up a 1/2g of cocaine today and she started to feel dizzy, light headed, numbness, tingling, and blurry vision. The patient says most of these symptoms have since passed. The patient feels prety well here in the ER. The patient denies SI or HI but she is looking for help with her drug problem. The patient has an outpatient mental health appointment tomorrow. - Related Data Allergies/Adverse Reactions: methocarbamol [Methocarbamol] Allergy (Verified 02/25/19 10:09) propranolol [From Inderal [place]] Allergy (Verified 02/25/19 10:09) Past Medical History - General Information source: Patient - Social History Smoking Status: Current Every Day Smoker Frequency of alcohol use: None Drug Abuse: Cocaine, Heroin Lives with: Family Family History: CAD, CVA, DM Patient has suicidal ideation: No Patient has homicidal ideation: No Pulmonary Medical History: Reports: Hx Pneumonia Denies: Hx Tuberculosis Renal/ Medical History: Denies: Hx Peritoneal Dialysis GI Medical History: Reports: Hx Gastritis, Hx Irritable Bowel, Hx Colonoscopy, Hx Endoscopy Musculoskeletal Medical History: Reports Hx Musculoskeletal Trauma Skin Medical History: Reports Hx MRSA Psychiatric Medical History: Reports: Hx Anxiety, Hx Attention Deficit Hyperactivity Disorder, Hx Depression, Hx Post Traumatic Stress Disorder Infectious Medical History: Reports: Hx MRSA Past Surgical History: Reports: Hx Dilation and Curettage - , Hx Oral Surgery - wisdom teeth, Other - multiple I&Ds for MRSA infection. Denies: Hx Pacemaker - Immunizations Hx Diphtheria, Pertussis, Tetanus Vaccination: No Review of Systems - Review of Systems EENT: Blurred vision Cardiovascular: Palpitations Neurological/Psychological: Tingling, Other - numbness Physical Exam - Notes Notes: GENERAL: Well-appearing, well-nourished and in no acute distress. HEAD: Atraumatic, normocephalic. EYES: Pupils equal round and reactive to light, extraocular movements intact, sclera anicteric, conjunctiva are normal. ENT: TMs normal, nares patent, oropharynx clear without exudates. Moist mucous membranes. NECK: Normal range of motion, supple without lymphadenopathy or JVD. LUNGS: Breath sounds clear to auscultation bilaterally and equal. No wheezes rales or rhonchi. HEART: Tachycardic, normal rhythm without murmurs, rubs or gallops. ABDOMEN: Soft, nontender, normoactive bowel sounds. No guarding, no rebound. No masses appreciated. EXTREMITIES: Normal range of motion, no pitting or edema. No clubbing or cyanosis. NEUROLOGICAL: Cranial nerves II through XII grossly intact. Normal speech, normal gait. PSYCH: Normal mood, normal affect. SKIN: Diffuse skin lesions from injectable drug use. Warm, Dry, normal turgor, no rashes or lesions noted. Course - Re-evaluation Re-evalutation: 10/20/19 18:51 The patient re-lapsed on cocaine. She says she injected it IV and she felt numb and had blurry vision but that has all passed. The patient is feeling fairly weel in the ER and just has amildly elevated heart rate which is to be expected after cocaine use. The patient is not suicidal or homicidal. The patient has family with her who are willing to take her home and be with her. The patient actually has an outpatient psych appointment tomorrow which is excellent. The patient was provided with outpatient psych/detox/rehab resources from the ER today. - EKG Interpretation by Me EKG shows normal: Sinus rhythm, [place], Intervals, QRS Complexes, ST-T Waves Rate: Tachycardia Discharge - Discharge Clinical Impression: Cocaine abuse, Anxiety Depression Qualifiers: Depression Type: unspecified Qualified Code(s): F32.9 - Major depressive disorder, single episode, unspecified Condition: Stable Disposition: HOME, SELF-CARE Instructions: Cocaine Abuse ([facility]), Anxiety ([facility]), Depression ([facility]) Additional Instructions: Follow up with outpatient mental health as scheduled for tomorrow. Also consider follow up with the outpatient mental health services provided to you from the ER. Return to an ER for thoughts of wanting to hurt yourself or others. Drink plenty of fluids in the days to come.
[2019-10-20 19:18] VITALS: BP 130/88
--- NOTE | 2019-10-20 21:27 | EKG REPORT ---
SEVERITY:- BORDERLINE ECG - SINUS TACHYCARDIA BORDERLINE T WAVE ABNORMALITIES : Confirmed by: Liliane Bledsoe MD 20-Oct-2019 21:26:49
== END 2019-10-20 19:41 | disposition home or self-care (01) ==
LOC: ER 16:53
DX: F14.10 Cocaine abuse, uncomplicated (principal); F32.9 Major depressive disorder, single episode, unspecified; F41.9 Anxiety disorder, unspecified; F11.10 Opioid abuse, uncomplicated; R20.0 Anesthesia of skin; H53.8 Other visual disturbances; R20.2 Paresthesia of skin; R42 Dizziness and giddiness; R00.0 Tachycardia, unspecified; Z88.8 Allergy status to other drugs, medicaments and biological substances; F17.200 Nicotine dependence, unspecified, uncomplicated
CPT/HCPCS: 93005; 93010; 99284

== ENCOUNTER 2020-03-06 19:05 | Emergency (ER) | payer MEDICAID, OTHER ==
--- NOTE | 2020-03-06 19:40 | ER Document Report ---
ED Medical Screen (RME) - General Mode of Arrival: Ambulatory Information source: Patient TRAVEL OUTSIDE OF THE [place] IN LAST 30 DAYS: No <BARB ALEXANDRA - Last Filed: 03/06/20 19:38> <DAISY GRANDA IV - Last Filed: 03/06/20 21:34> - General Chief Complaint: Suicidal Ideation Stated Complaint: SUICIDAL ATTEMPT Time Seen by Provider: 03/06/20 19:24 Notes: 44-year-old female patient presenting to the emergency department after suicide attempt. Patient reportedly took approximately 30 tablets of 5 mg Valium about an hour prior to arrival. Patient also reports that she got a rope and tried hanging herself and when that was not working she tried cutting her neck with a knife. She reports that she had a falling out with a friend. The friend believes patient is stalking her and made a podcast about it. Patient reports longstanding history of depression, anxiety and PTSD. She also reports that she lost her brother 1 year ago. Patient was also undergoing transition from female to male. Patient has a very flat affect but seems to be open about her situation. Superficial abrasion noted to anterior neck. I have greeted and performed a rapid initial assessment of this patient. A comprehensive ED assessment and evaluation of the patient, analysis of test results and completion of the medical decision making process will be conducted by additional ED providers. I have specifically instructed the patient or f amily members with the patient to immediately return to any nursing staff should anything change in the patient's condition or with their chief complaint. (BARB ALEXANDRA) - Related Data Allergies/Adverse Reactions: methocarbamol [Methocarbamol] Allergy (Verified 03/06/20 19:40) propranolol [From Inderal [place]] Allergy (Verified 03/06/20 19:40) Past Medical History Pulmonary Medical History: Reports: Hx Pneumonia Denies: Hx Tuberculosis Renal/ Medical History: Denies: Hx Peritoneal Dialysis GI Medical History: Reports: Hx Gastritis, Hx Irritable Bowel, Hx Colonoscopy, Hx Endoscopy Musculoskeltal Medical History: Reports Hx Musculoskeletal Trauma Skin Medical History: Reports Hx MRSA Psychiatric Medical History: Reports: Hx Anxiety, Hx Attention Deficit Hyperactivity Disorder, Hx Depression, Hx Post Traumatic Stress Disorder Infectious Medical History: Reports: Hx MRSA Past Surgical History: Reports: Hx Dilation and Curettage - , Hx Oral Surgery - wisdom teeth, Other - multiple I&Ds for MRSA infection. Denies: Hx Pacemaker - Immunizations Hx Diphtheria, Pertussis, Tetanus Vaccination: No <BARB ALEXANDRA - Last Filed: 03/06/20 19:38> Physical Exam - Vital signs Vitals: Temp 98.2 F 03/06/20 19:40 Course - Laboratory Result Diagrams: 03/06/20 20:10 03/06/20 20:10 <DAISY GRANDA IV - Last Filed: 03/06/20 21:34> - Vital Signs Vital signs: Temp Pulse Resp BP Pulse Ox 98.2 F 18 118/80 96 03/06/20 19:40 03/06/20 20:21 03/06/20 20:20 03/06/20 20:21 - Laboratory Laboratory results interpreted by me: 03/06/20 03/06/20 20:10 20:12 Glucose 120 H Ur Leukocyte Esterase TRACE H Salicylates < 1.0 L Acetaminophen < 10 L
[2020-03-06 20:23] LABS: ABSOLUTE BASOPHILS # (AUTO) 0.1 10^3/uL (0.0-0.2); ABSOLUTE MONOCYTES (AUTO) 0.6 10^3/uL (0.1-1.4); ABSOLUTE NEUT (AUTO) 5.3 10^3/uL (1.7-8.2); BASOPHILS % (AUTO) 0.7 % (0-2); EOSINOPHILS % (AUTO) 0.5 % (0-6); HEMATOCRIT 41.6 % (36.0-47.0); HEMOGLOBIN 14.9 g/dL (12.0-15.5); LYMPHOCYTES % (AUTO) 24.9 % (13-45); MEAN CORPUSCULAR HEMOGLOBIN 32.1 pg (27.0-33.4); MEAN CORPUSCULAR HGB CONC 35.8 g/dL (32.0-36.0); MEAN CORPUSCULAR VOLUME 90 fl (80-97); MONOCYTES % (AUTO) 7.3 % (3-13); PLATELET COUNT 325 10^3/uL (150-450); RED BLOOD COUNT 4.64 10^6/uL (3.72-5.28); RED CELL DISTRIBUTION WIDTH 13.4 % (11.5-14.0); SEGMENTED NEUTROPHILS % (AUTO) 66.6 % (42-78); TOTAL CELLS COUNTED % (AUTO) 100 %
[2020-03-06 20:32] LABS: APPEARANCE,URINE CLOUDY; BILIRUBIN,URINE NEGATIVE (NEGATIVE); COLOR,URINE YELLOW; GLUCOSE, URINE NEGATIVE (NEGATIVE); KETONES,URINE NEGATIVE (NEGATIVE); LEUKOCYTE ESTERASE,URINE TRACE (NEGATIVE); NITRITE,URINE NEGATIVE (NEGATIVE); PROTEIN,URINE NEGATIVE (NEGATIVE); URINE SPECIFIC GRAVITY 1.014; UROBILINOGEN,URINE NEGATIVE mg/dL (<2.0)
[2020-03-06 20:43] LABS: ALBUMIN 4.4 g/dL (3.5-5.0); ALKALINE PHOSPHATASE 80 U/L (38-126); ANION GAP 8 (5-19); ASPARTATE AMINO TRANSFERASE 17 U/L (14-36); BILIRUBIN,TOTAL 0.4 mg/dL (0.2-1.3); BLOOD UREA NITROGEN 13 mg/dL (7-20); CALCIUM 9.5 mg/dL (8.4-10.2); CARBON DIOXIDE 26 mmol/L (22-30); CHLORIDE 103 mmol/L (98-107); GLUCOSE 120 mg/dL (75-110); POTASSIUM 4.4 mmol/L (3.6-5.0); TOTAL PROTEIN 7.3 g/dL (6.3-8.2)
[2020-03-06 20:44] LABS: ACETAMINOPHEN < 10 ug/mL (10-30); ALCOHOL < 10 mg/dL (NONE DETECTED); SALICYLATE < 1.0 mg/dL (2.0-20.0)
[2020-03-06 20:50] LABS: URINE AMPHETAMINES SCREEN NEGATIVE; URINE BARBITURATES SCREEN NEGATIVE; URINE COCAINE SCREEN NEGATIVE; URINE MARIJUANA (THC) SCREEN NEGATIVE; URINE METHADONE SCREEN NEGATIVE; URINE PHENCYCLIDINE SCREEN NEGATIVE
[2020-03-06 20:55] LABS: URINE BENZODIAZEPINES SCREEN UNCONFIRMED POSITIVE
--- NOTE | 2020-03-06 21:17 | EKG REPORT ---
SEVERITY:- ABNORMAL ECG - SINUS RHYTHM ABNRM R PROG, CONSIDER ASMI OR LEAD PLACEMENT : Confirmed by: Darwin Durate MD 06-Mar-2020 21:15:23
--- NOTE | 2020-03-06 23:26 | ER Document Report ---
Entered by JOSE MIGUEL MAX SCRIBE 03/06/202125 Acting as scribe for:DAISY GRANDA IV, MD ED Psych Disorder / Suicide - General Chief Complaint: Psych Problem Stated Complaint: SUICIDAL ATTEMPT Time Seen by Provider: 03/06/20 19:24 Mode of Arrival: Ambulatory Information source: Patient, Emergency Med Personnel Notes: This 44 year old female patient with a history of anxiety, depression, and PTSD presents to the ED today with complaints of suicidal ideation. Patient reportedly took approximately x30 tablets of 5 mg Valium as a suicide attempt about x1 hour prior to arrival. Per ED nurse, patient also attempted to hang herself with a rope and tried cut her neck with a knife. Patient states that a friend accused of her being a stalker on a podcast, so she tried to harm herself. She also admits to auditory and visual hallucinations at this time. According to ED Nurse, patient has a history of overdose, self-harm, and receiving inpatient treatment. Denies homicidal ideation. TRAVEL OUTSIDE OF THE [place] IN LAST 30 DAYS: No - Related Data Allergies/Adverse Reactions: methocarbamol [Methocarbamol] Allergy (Verified 03/06/20 19:40) propranolol [From Inderal [place]] Allergy (Verified 03/06/20 19:40) Past Medical History - General Information source: Patient, [facility] Records - Social History Smoking Status: Unknown if Ever Smoked Cigarette use (# per day): No Chew tobacco use (# tins/day): No Smoking Education Provided: No Family History: Reviewed & Not Pertinent, CAD, CVA, DM Patient has suicidal ideation: Yes Patient has homicidal ideation: No Pulmonary Medical History: Reports: Hx Pneumonia GI Medical History: Reports: Hx Gastritis, Hx Irritable Bowel, Hx Colonoscopy, Hx Endoscopy Musculoskeletal Medical History: Reports Hx Musculoskeletal Trauma Skin Medical History: Reports Hx MRSA Psychiatric Medical History: Reports: Hx Anxiety, Hx Attention Deficit Hyperactivity Disorder, Hx Depression, Hx Post Traumatic Stress Disorder Infectious Medical History: Reports: Hx MRSA Past Surgical History: Reports: Hx Dilation and Curettage - , Hx Oral Surgery - wisdom teeth, Other - multiple I&Ds for MRSA infection - Immunizations Hx Diphtheria, Pertussis, Tetanus Vaccination: No Review of Systems - Review of Systems Constitutional: No symptoms reported EENT: No symptoms reported Cardiovascular: No symptoms reported Respiratory: No symptoms reported Gastrointestinal: No symptoms reported Genitourinary: No symptoms reported Female Genitourinary: No symptoms reported Musculoskeletal: No symptoms reported Skin: See HPI, Other - Laceration Hematologic/Lymphatic: No symptoms reported Neurological/Psychological: See HPI, Hallucinations, Suicidal ideation. denies: Homicidal ideation -: Yes All other systems reviewed and negative Physical Exam - Vital signs Vitals: Temp 98.2 F 03/06/20 19:40 - General General appearance: Alert In distress: None - HEENT Head: Normocephalic, Atraumatic Eyes: Normal Pupils: PERRL Neck: Other - Laceration at base of neck on both sides - Respiratory Respiratory status: No respiratory distress Chest status: Nontender Breath sounds: Normal Chest palpation: Normal - Cardiovascular Rhythm: Regular Heart sounds: Normal auscultation Murmur: No Friction rub: No Gallop: None auscultated - Abdominal Inspection: Normal Distension: No distension Bowel sounds: Normal Tenderness: Nontender - Abdomen soft Organomegaly: No organomegaly - Back Back: Normal, Nontender - Extremities General upper extremity: Normal inspection General lower extremity: Normal inspection - Neurological Neuro grossly intact: Yes - Psychological Associated symptoms: Auditory hallucinations, Depressed, Visual hallucinations, Other - Admits to SI - Skin Skin irregularity: Laceration - Superficial linear laceration at the base of the neck on both sides, approximately x8 cm in length. Non-gaping, doesn't need sutures Course - Vital Signs Vital signs: Temp Pulse Resp BP Pulse Ox 97.8 F 18 117/78 97 03/07/20 00:52 03/07/20 00:02 03/06/20 23:01 03/07/20 00:02 - Laboratory Result Diagrams: 03/06/20 20:10 03/06/20 20:10 Laboratory results interpreted by me: 03/06/20 03/06/20 20:10 20:12 Glucose 120 H Ur Leukocyte Esterase TRACE H Salicylates < 1.0 L Acetaminophen < 10 L - EKG Interpretation by Me Additional EKG results interpreted by ne: 03/06/20 21:38 EKG obtained on 03/06/2020 at 1952 hrs. was interpreted by this MD. Findings: Normal sinus rhythm, rate 93, normal axis, P waves proceed QRS complexes, QRS complexes appear narrow, there are no obvious patterns of ST segment elevation or depression present to suggest acute myocardial ischemia or infarction. Impression normal sinus rhythm with nonspecific ST segments. Discharge - Discharge Clinical Impression: Suicidal ideation, Involuntary commitment, Intentional self-harm, Intentional overdose of drug in tablet form Condition: Good Disposition: PSYCH HOSP/UNIT I personally performed the services described in the documentation, reviewed and edited the documentation which was dictated to the scribe in my presence, and it accurately records my words and actions.
--- NOTE | 2020-03-07 10:50 | ER Document Report ---
Doctor's Note Notes: 03/07/20 10:49 Patient is now alert, oriented, and conversant. Review of records and lab work and current physical status shows the patient is medically cleared for either discharge or inpatient psychiatric placement.
--- NOTE | 2020-03-07 16:34 | PSYCHOLOGICAL NOTE ---
Psych Note - Psych Note Date seen by psych provider: 03/07/20 Time seen by psych provider: 10:25 - [id number] Psych Note: Presenting Problem: Patient is a 44 year old female (who identifies as a male, prefers to be called Mega) who presented to the [facility] ED last evening via POV for suicidal ideation with overdose attempt (up to 30 Valium 5MG), tied rope around neck and took knife to throat. Medical documentation noted redness and superficial l acerations/abrasions to anterior neck. He informed medical staff there is relationship discord with someone who thinks patient is a stalker and got a restrainer order against patient, this was someone patient got close with after her brother committed suicide a year ago, and yesterday there was an online podcast portraying patient as a stalker. Medical documentation also noted patient reported as history of SI via overdose and self injury. Patient was subsequently put on a FULL IVC by the Attending ED Physician. Patient was sleeping. He woke up startled but was quick to become alert and orie nted. When asked if he still had thoughts of wanting to hurt/harm/kill self he said "at the moment I only woke up." He acknowledged he still had suicidal thoughts after getting to the ED last night. He admitted to trying to kill himself. Patient identified his outpatient providers are Mitzi for medication management (once every 2 months) and Elizabeth for therapy (weekly sessions) both at [place] In [place]. He reported "I usually take my medications as prescribed." He reported being prescribed Valium, Effexor and Dextroamphetamine. He further noted he did not want to be on an amphetamine so asked his doctor to try something else for the ADHD. Patient stated he was put on Atomoxetine (Strattera), but taking it with the Effexor "made sleep stop for several days at a time." Patient stated he called his provider who told him to continue taking the Effexor but stop the Atomoxetine and they would address medication at the next visit. Patient unable to say when next medication management appointment is but that they are twice a month. Patient also noted he started Hormone Therapy at [facility] in [place], medications started last week. He acknowledged having been on "various psychiatric medications since 1992 and being in therapy since 3rd grade." He identified he is on SSI for PTSD and Depression, also noted Anxiety and reported had testing November 2018 for Autism and the meghan noted Cluster C traits similar to Borderline Personality Disorder. Patient acknowledged his brother committed suicide December 29, 2018, stated "I have 3 suicide anniversaries that week, I have had 4 people close to me commit suicide since 2017, 6 in my entire lifetime." Patient reported last hospitalization was about 4-5 years ago here at [facility] for a couple days, the last time in a locked behavioral health facility was 7 years ago, and he noted 2 in 2011 when he moved to [place]. Patient was alert and oriented to self, person, place, time and situation. Mood was depressed with flat affect. He admitted to overdose, trying to hang self and trying to cut neck in an attempt to kill self yesterday. He did not answer if still suicidal but said "at the moment I only woke up," acknowledged he still felt suicidal when he got to the ED last night and reported a history of overdose attempts and self injury. Patient did not appear to be responding to internal stimuli as evidenced by fair eye contact and answering questions appropriately when addressed. Thought processes were linear. Conversational speech was within normal limits for rate, tone and prosody. Intellectual abilities are estimated to be average. Insight, judgment and impulse control were poor as evidenced by trying 3 different ways to hurt/harm/kill self. Diagnosis: Overdose of Valium 5MG (up to 30 count) Suicidal Ideation (in addition to overdose attempt also tied rope around neck, then took knife to neck) Increased Depression History of PTSD, Anxiety, Depression and Cluster C Traits per patient Impression/Plan: Recommendation to maintain FULL IVC that the [facility] ED Physician completed last evening. Patient presented with an overdose of up to 30 Valium 5MG, tied a rope around his neck and when he started seeing starts took a knife to his neck (there are red raised thompson that are visible on front neck area) in response to a social media Podcast yesterday where someone patient got close to after brother committed suicide last year called patient a stalker and has a restraining order against patient. Consulted with Dr. George regarding the management and care of patient. ED Physician in agreement with recommendations.
[2020-03-07 20:54] VITALS: BP 114/66
== END 2020-03-07 21:09 ==
LOC: ER 19:05
DX: T42.4X2A Poisoning by benzodiazepines, intentional self-harm, initial encounter (principal); F41.9 Anxiety disorder, unspecified; F32.9 Major depressive disorder, single episode, unspecified; F43.10 Post-traumatic stress disorder, unspecified; Y92.9 Unspecified place or not applicable; Z88.8 Allergy status to other drugs, medicaments and biological substances; R44.0 Auditory hallucinations; R44.1 Visual hallucinations; Z20.828 Contact with and (suspected) exposure to other viral communicable diseases
CPT/HCPCS: 93005; 99285; 36415; 80307 ×4; 85025; 87635; 80053; 81001; 93010; C9803